=== PATIENT | female | born 1965 | race Caucasian/White ===

== ENCOUNTER 2017-12-21 06:50 | Day surgery (SDC) | payer OTHER, SELFPAY ==
--- NOTE | 2017-12-21 06:52 | PDOC.DSDIS_ITS ---
Discharge Plan Disposition Patient Disposition: HOME Condition: Good Discharge Details Reason For Visit: colonoscopy Attending Provider: Nay Muhammad Primary Care Provider: Yolie Villegas Home Meds and New Rx's Prescriptions: Continue melatonin 10 MG tablet 10 mg PO HS RF: 0 ibuprofen-diphenhydramine HCl [Advil PM Liqui-Gels] 200-25 mg Capsule 2 cap PO HS PRNRF: 0 Discontinued bisacodyl [Bisa-Lax] 5 MG tablet,delayed release (DR/EC) 5 mg PO as directed Qty: 4 RF: 0 polyethylene glycol 3350 255 GM powder 255 gm PO as directed for colo Qty: 255 RF: 0 Discharge Instructions Instructions: Colonoscopy (DC), Colorectal Polyps (DC) Additional Instructions: Findings: 2 polyps Follow up: 3-5 years depending on pathology results New Medications: none Please call if you develop: fevers >101.5 Nausea or Vomiting Abdominal pain that is not transient 1. Because there will be medication in your system for the next 24 hours, you may feel a little sleepy. Your coordination will be affected. Therefore: a. Do not drive or operate dangerous equipment for 24 hours. b. Do not drink alcohol beverages for 24 hours (not even beer). c. Plan to go home and rest for the day. 2. Generally there are no restrictions on your activity after a day or so has gone by, but you may feel a bit fatigued for a few days. 3 After you arrive home you may have a light meal and return to a normal diet as you can tolerate it without feeling sick to your stomach. 4. After surgery, you may feel pain or discomfort. This should be only transient , but if it persists please contact your doctor. 5. If there are any questions regarding the findings of your procedure, please feel free to contact your doctor. 6. If you are unable to contact your doctor with a problem, contact the hospital at [phone]. 7. Continue all your regular medications unless directed otherwise. I understand the above instructions and have no questions. Signature of Patient or Responsible Adult Escort Date/Time Name of Responsible Adult Escort Signature of Nurse Date/Time Activity:: Activity as Tolerated Diet:: Normal Diet Discharge Orders Discharge Orders: Discharge Order (Routine); Ordered 12/21/17 Ordered By: Nay Muhammad
--- NOTE | 2017-12-21 06:52 | W.COLOREPORT ---
Colonoscopy Report Date of procedure: 12/21/17 Pre-op diagnosis general: Colon Cancer screening Post-op diagnosis procedure note: other (2 polyps) Procedure: Colonoscopy with polypectomy by forceps and snare Surgeon: Nay Muhammad Anesthesia proc note operative: MAC (Alonzo Motley, RAN/ Carlos Galloway, JOE) Estimated blood loss (mL): 5 Pathology: other (transverse polyp and descending polyp) Complications: None Disposition: same day Indications: Mrs. Fleming is a pleasant 52 year old who was seen in the office for her first screening colonoscopy. Risks, benefits and complications have been reviewed. Complications include but are not limited to bleeding, pain, perforation, missed small lesion/polyp, sore throat, aspiration and adverse reaction to the medications. Questions were entertained and answered to their satisfaction and they wished to proceed. No guarantees were given or implied. Prep: Miralax/Dulcolax Procedure Start Time: 08:37 Procedure End Time: 09:00 Retraction Time: 14 minutes Findings: One sessile polyp in the transverse colon and one pedunculated polyp in the descending colon Procedure Description: After informed consent was obtained the patient was taken to the procedure room and placed in a left decubitous position. Monitors were applied and a time out was done. The patients name, date of , procedure, allergies to medications and metal in their body was reviewed. The patient was then sedated. Once sedated and comfortable a rectal exam was done. External exam was normal. Internal exam revealed a normal sphincter tone and no palpable masses. . The scope was then introduced and retrofelexed. No internal hemorrhoids were identified. The scope was then advanced to the cecum without difficulty. The TI and appendiceal orifice were identified. The prep was adequate. The scope was then slowly retracted over 14 minutes back into the rectum. 2 polyps were removed. One sessile polyp was removed with forceps in the distal transverse colon and one pedunculated polyp was removed with a snare in the proximal descending colon. The scope was removed and the patient was woken up and taken back to same day surgery in stable condition. The patient tolerated the procedure well and there were no immediate complications. Follow up: The patient should follow up in 3-5 years unless they develop changes in bowel habits or other new gastrointestinal complaints.
[2017-12-21 07:09] VITALS: BP 125/84; PULSE 66; RESP 16; TEMP 36.5; O2SAT 99
[2017-12-21] MEDS: Lactated Ringers 1,000 ML 80 ML IV (07:21)
--- NOTE | 2017-12-21 08:52 | BOWEL_PTH ---
PATIENT: Margie Fleming LOC: [facility] U#:[id number] AGE/SX: 52/F ROOM: RE12/21/[address]: Nay Muhammad MD : [id number] BED: DIS: 12/21/2017 SPEC #: [id number] RECD: 12/21/17 12:58 STATUS: HARLEEN REQ #: [id number] NICOLASA: 12/21/17 08:[address]: Nay Muhammad DEPT: Surgical Specimen RECD BY: Anita Nation ENTERED: 12/21/17 12:59 SP TYPE: Bowel OTHR DR: Yolie Villegas Tissues: 1 - BIOPSY BOWEL 2 - BIOPSY BOWEL Procedures: GROSS AND MICRO LEVEL 4 Comments: [id number]
[2017-12-21 09:32] VITALS: BP 139/82; PULSE 69; RESP 16; TEMP 36.3; O2SAT 99
== END 2017-12-21 09:57 | disposition home or self-care (01) ==
PROVIDERS: PCP Nurse Practitioner Family; Visit Provider Surgery
PROC: 0DJD8ZZ Inspection of Lower Intestinal Tract, Via Natural or Artificial Opening Endoscopic (ICD-10-PCS; CPT 45378; principal; 2017-12-21 08:15)
DX: Z12.11 Encounter for screening for malignant neoplasm of colon (principal); K63.5 Polyp of colon
CPT/HCPCS: 45380; 45385; 88305

== ENCOUNTER 2018-08-03 00:51 | Outpatient (CLI) | payer OTHER, SELFPAY ==
--- NOTE | 2018-08-03 11:28 | DI.MAMMO_ITS ---
SYMPTOM/DIAGNOSIS: SCREENING, [facility], Z00.00 MAMMOGRAMS: Mammograms were interpreted according to the usual protocol including computer analysis with CAD system, tomosynthesis and C view imaging. Comparison is made with prior examinations. Breast density, Category B. No suspicious masses or microcalcifications are seen. There is no definite evidence of malignancy. IMPRESSION: Negative mammogram. Routine screening is recommended. Category 1. MQSA ASSESSMENT OF FINDINGS: Negative. Category 1. Patient will receive a letter notifying them of these results. BI-RADS category B. There are scattered areas of fibroglandular density.
== END 2018-08-03 01:11 ==
PROVIDERS: PCP Nurse Practitioner Family; Visit Provider Nurse Practitioner Family
DX: Z00.00 Encounter for general adult medical examination without abnormal findings (principal); Z12.31 Encounter for screening mammogram for malignant neoplasm of breast
CPT/HCPCS: 77063; 77067

== ENCOUNTER 2018-08-08 09:33 | Outpatient (CLI) | payer OTHER, SELFPAY ==
[2018-08-08 10:36] LABS: Anion Gap 8.3 mmol/L (3-11); BUN 16 mg/dL (7-18); CO2 26.7 mmol/L (21.0-32.0); Calcium 8.9 mg/dL (8.5-10.1); Chloride 105 mmol/L (98-107); Cholesterol 219 mg/dL (50-200); Glucose 93 mg/dL (70-100); HDL Cholesterol 67 mg/dL (40-60); LDL CHOLESTEROL 139 mg/dL (<100); Potassium 4.3 mmol/L (3.5-5.1); Sodium 140 mmol/L (136-145); Triglyceride 38 mg/dL (30-150)
== END 2018-08-08 09:53 ==
PROVIDERS: PCP Nurse Practitioner Family; Visit Provider Nurse Practitioner Family
DX: Z00.00 Encounter for general adult medical examination without abnormal findings (principal); Z13.228 Encounter for screening for other metabolic disorders; Z13.220 Encounter for screening for lipoid disorders
CPT/HCPCS: 36415; 80048; 80061; 83721

== ENCOUNTER 2018-10-10 03:48 | Emergency (ER) | payer OTHER, SELFPAY ==
[2018-10-10 03:52] VITALS: BP 188/98; PULSE 73; RESP 16; TEMP 36.7; O2SAT 97
--- NOTE | 2018-10-10 04:04 | ED.GENADUL_ITS ---
Discharge Plan Disposition Patient Disposition: HOME Condition: Good Discharge Details Chief Complaint: Cellulitis Clinical Impression: Right arm cellulitis Primary Care Provider: Yolie Villegas ED Provider: Td Millard Meds and New Rx's Prescriptions: New cephalexin 500 mg tablet 500 mg PO TID Qty: 20 RF: 0 Continued melatonin 10 MG tablet 10 mg PO HS RF: 0 ibuprofen-diphenhydramine HCl [Advil PM Liqui-Gels] 200-25 mg Capsule 2 cap PO HS PRNRF: 0 Discharge Instructions Instructions: Cellulitis (ED) Additional Instructions: Antibiotic as directed. Use Tylenol or Motrin as needed for discomfort. Follow-up with primary care in 2 to 3 days for recheck. Return to ED for increasing pain, swelling, high fevers, numbness, weakness, other concerns. Referrals: Yolie Villegas [Primary Care Provider] - Medical Decision Making Patient here complaining of pain in the right forearm. She has no discrete tenderness but she has significant warmth with erythema over the ulna aspect of the right forearm. Forearm is soft. There is no crepitus. She has normal range of motion. She has no pain with range of motion. Suspect early cellulitis. Will start Keflex. Motrin for pain. Follow-up with primary care in 2 to 3 days for recheck. Return to ED for worsening pain, swelling, high fevers, numbness, weakness, other concerns or problems. HPI General Mode of arrival: ambulatory . Date/Time Provider Initiated Documentation: 10/10/18 04:03 . Limitations to Documentation: no limitations . Information obtained by: patient . HPI Narrative: Patient presents to ED for evaluation of right arm aching, redness. She was working in her garden most of the day yesterday. She knows she was bitten a few times by insects. Overnight the arm has become painful, red, hot. Seems a little bit swollen to her. She has no pain in the elbow, wrist, hand. Seems mostly to be aching in the forearm. She has been icing it. She did not take anything like Motrin or Tylenol. She has had no fevers or chills. She was having difficulty sleeping so she came in for evaluation. Related Data Home Medications Medication Instructions Recorded Confirmed melatonin 10 mg PO HS 09/15/17 10/10/18 ibuprofen-diphenhydramine HCl 2 cap PO HS PRN 12/17/17 10/10/18 [Advil PM Liqui-Gels] cephalexin 500 mg PO TID #20 tab 10/10/18 Previous Rx's Medication Instructions Recorded cephalexin 500 mg PO TID #20 tab 10/10/18 Allergies Allergy/AdvReac Type Severity Reaction Status Date / Time cashew nut Allergy Severe throat Unverified 12/21/17 07:46 swelling/rash Penicillins Allergy Unknown RASH Unverified 12/21/17 07:07 Sulfa (Sulfonamide Allergy Unknown RASH Unverified 12/21/17 07:07 Antibiotics) sulfamethoxazole Allergy RASH Unverified 12/21/17 07:07 [From Bactrim] trimethoprim [From Bactrim] Allergy RASH Unverified 12/21/17 07:07 General Stated Complaint: Cellulitis DARCIE: 4 Review of Systems Review of Systems As documented in HPI otherwise negative as below. Const: no fever, chills, weakness Resp: no cough, SOB, pleuritic pain CV: no CP, diaphoresis, edema, syncope GI: no abdominal pain, nausea, vomiting, diarrhea Neuro: no headache, numbness, focal weakness, confusion PFSH Medical History Adjustment disorder with depressed mood Miscarriage Obesity Thrombocytopenia Tree nut allergy Family History (Updated 10/10/18 @ 04:13 by Td Millard MD) Other Family history of breast cancer Family history of heart disease Social History Smoking/Tobacco Use Status: Never Alcohol Intake: current Alcohol Intake frequency: holidays/special occasions only Alcohol type: wine Drug use: Never Do you feel safe at home: Yes Do you feel safe in your relationship?: Yes Exam Const General: cooperative, comfortable and no acute distress Orientation: alert and oriented x3 Skin General skin exam: erythema (ulna aspect of right forearm) Trauma: other (couple areas of abrasions/possible insect bite right forearm) Neuro General: alert, oriented x3, no focal motor deficits and CN's II-XI intact bilaterally Cognition: normal cognition Speech: speech normal Sensory Exam: no sensory deficits noted Extrem Right upper extremity: shoulder/upper arm Details: normal to inspection and normal ROM, elbow/forearm Details: normal ROM and warmth (forearm); no tenderness and no swelling and wrist Details: normal to inspection and normal ROM; no tenderness and no unusual warmth Course Vital Signs Temperature 98.1 F 10/10/18 03:52 Pulse 73 10/10/18 03:52 Respiratory Rate 16 10/10/18 03:52 Blood Pressure 188/98 H 10/10/18 03:52 Pulse Oximetry 97 10/10/18 03:52 Temperature 98.1 F 10/10/18 03:52 Temperature Source Temporal Artery Scan 10/10/18 03:52 Pulse 73 10/10/18 03:52 Respiratory Rate 16 10/10/18 03:52 Respiratory Effort 10/10/18 03:52 Blood Pressure 188/98 H 10/10/18 03:52 Pulse Oximetry 97 10/10/18 03:52 Oxygen Delivery Method Room Air 10/10/18 03:52 Oxygen Flow Rate 0 10/10/18 03:52 Pain Level 7 10/10/18 03:52
[2018-10-10] MEDS: Cephalexin 500 MG CAP PO (04:34)
[2018-10-10] MEDS: Ibuprofen 600 MG TAB PO (04:34)
== END 2018-10-10 04:50 | disposition home or self-care (01) ==
PROVIDERS: Emergency Provider Emergency Medicine; PCP Nurse Practitioner Family
DX: L03.113 Cellulitis of right upper limb (principal)
CPT/HCPCS: 99283

== ENCOUNTER 2019-08-30 02:28 | Outpatient (CLI) | payer OTHER, SELFPAY ==
--- NOTE | 2019-08-30 | DI.MAMMO_ITS ---
EXAM: MG MAMMO DIAGNOSTIC BI CLINICAL HISTORY: UNSPECIFIED BREAST DISORDER, N64.9, ITCHING PAIN UNDER LT AREOLA X 4 MOS TECHNIQUE: Mammograms were interpreted according to the usual protocol including computer analysis w [employer] CAD system, tomosynthesis and C-view imaging. COMPARISON: FINDINGS: The breasts are of moderate density with fairly symmetrical distribution of fibroglandular tissue. N o dominant mass or clumped microcalcification is identified in either breast. Current examination is compared with previous examinations including July 2018 and there has been no gross interval change i n appearance in comparison with previous studies. IMPRESSION: No specific evidence of malignancy at this time. Routine screening examinations are suggested at yea rly intervals due to the family history of breast carcinoma. Category: BI-RADS Cat 1 - Negative Breast Density - Category B - Scattered areas of fibroglandular density
--- NOTE | 2021-01-28 | DI.US_ITS ---
Exam(s) MG MAMMO SCREEN CALL BACK UNI US BREAST LT COMPLETE EXAM: DIAGNOSTIC LEFT BREAST ULTRASOUND AND US BREAST LT COMPLETE CLINICAL HISTORY: ASYMMETRIC DENSITIES IN THE LT BREAST. TECHNIQUE: Spot-compression CC and MLO left breast views were performed. Thereafter, Complete ultrasound of the left breast was performed including all 4 quadrants, the retroareolar suma on, and the ipsilateral axilla. COMPARISON: Prior mammograms were reviewed. Most recent mammogram was 01/16/2020. FINDINGS: Additional spot compression views are somewhat equivocal. We proceeded with complete ultrasound exam ination the left breast. At the 12 o'clock position there is a 3 millimeter microcyst, correspond to 1 of the findings on the mammogram. The 3 o'clock position there are 2 adjacent microcysts, both measuring 3 millimeters. Most importantly, there are no solid lesions in all 4 quadrants nor in the immediate retroareolar reg ion. Scanning of the left axilla was negative for significant adenopathy IMPRESSION: Microcysts as described above. These most probably correspond to the findings on the recent screenin g mammogram Appropriate follow-up is repeat left breast mammogram in 6 months, with earlier imaging if a self det ected breast changes noted.. BI-RADS Category 3 - 6 month - Probably Benign Finding: Recommend follow-up mammography in 6 months Breast Density - Category B - Scattered areas of fibroglandular density Breast density Category C or D implies that the patient has dense breast tissue. Dense breast tissue can make it harder to find cancer on a mammogram. Dense breast tissue is also associated with an incr eased risk of breast cancer. This information about the result of the mammogram report was provided to the patient to raise their awareness. Use this report when you speak with the patient about their risks for breast cancer, which includes their family history. At that time, you may recommend additional screening tests (Ultrasoun d or MRI) as these tests may add significant information. A negative radiographic report should not delay biopsy if a dominant or clinically suspicious mass is present. Up to ten percent of cancers are not identified on mammography. A negative report may reinforce clinical impression. Adenosis and dense breasts may obscure an underlying neoplasm. False positive reports average 6 to 10%. Patient will receive a letter notifying them of these results.
== END 2019-08-30 02:48 ==
PROVIDERS: PCP Nurse Practitioner Family; Visit Provider Nurse Practitioner Family
DX: N64.4 Mastodynia (principal); N64.89 Other specified disorders of breast; Z80.3 Family history of malignant neoplasm of breast
CPT/HCPCS: 77062; 77066; G0279

== ENCOUNTER 2019-12-22 15:57 | Outpatient (REF) | payer OTHER, SELFPAY ==
[2019-12-24 17:23] LABS: Patient Race White; SARS-CoV-2 RNA Undetected (Undetected); SARS-CoV-2 Specimen Source Nasopharynx
== END 2019-12-22 16:17 ==
LOC: NCHCN 15:57
PROVIDERS: Visit Provider Nurse Practitioner Family
DX: R53.83 Other fatigue (principal)
CPT/HCPCS: U0003

== ENCOUNTER 2021-01-15 01:26 | Outpatient (CLI) | payer OTHER, SELFPAY ==
--- NOTE | 2021-01-15 07:50 | DI.MAMMO_ITS ---
Exam(s) MAMMO SCREENING EXAM: MAMMO SCREENING CLINICAL HISTORY: SCREENING, [facility],Z00.00 TECHNIQUE: Bilateral full field digital CC and MLO mammographic images were obtained with 3D tomosyn thesis and utilizing computer aided detection (CAD). COMPARISON: Available for comparison. FINDINGS: Masses/Architectural Distortion: There are focal areas of asymmetry in the left breast. There is an area of 5 cm lateral to the nipple on the CC view. There are 2 areas on the MLO view in the central left breast. Microcalcifications: No suspicious pleomorphic-type are seen. Skin Thickening/Nipple Retraction: None. IMPRESSION: 1. Focal asymmetric densities in the left breast as described above. 2. Additional views of the left breast are recommended for further evaluation. Ultrasound may be ind icated at that time. BI-RADS Category 0 - Assessment Incomplete: Need additional imaging evaluation Breast Density - Category B - Scattered areas of fibroglandular density Breast density category C or D implies that the patient has dense breast tissue. Dense breast tissue is very common and is not abnormal but dense breast tissue can make it harder to find cancer on a ma mmogram. Also, dense breast tissue may increase their breast cancer risk. This information about the result of the mammogram report was provided to the patient to raise their awareness. Use this report when you speak with the patient about their risks for breast cancer, which includes their family hist ory. At that time, you may recommend for more screening tests (Ultrasound or MRI) as they might be us eful based on their risk. A negative radiographic report should not delay biopsy if a dominant or clinically suspicious mass is present. Up to ten percent of cancers are not identified on mammography. A negative report may reinforce clinical impression. Adenosis and dense breasts may obscure an underlying neoplasm. False positive reports average 6 to 10%. Patient will receive a letter notifying them of these results.
== END 2021-01-15 01:46 ==
PROVIDERS: PCP Nurse Practitioner Family; Visit Provider Nurse Practitioner Family
DX: Z12.31 Encounter for screening mammogram for malignant neoplasm of breast (principal); R92.8 Other abnormal and inconclusive findings on diagnostic imaging of breast
CPT/HCPCS: 77063; 77067

== ENCOUNTER 2021-01-28 01:17 | Outpatient (CLI) | payer OTHER, SELFPAY | END 2021-01-28 01:37 | PROVIDERS: PCP Nurse Practitioner Family; Visit Provider Nurse Practitioner Family | DX: R92.8 Other abnormal and inconclusive findings on diagnostic imaging of breast (principal); R92.0 Mammographic microcalcification found on diagnostic imaging of breast | CPT/HCPCS: 76642; 77063; 77067 ==

== ENCOUNTER 2021-02-28 01:42 | Outpatient (CLI) | payer OTHER, SELFPAY ==
--- NOTE | 2021-02-28 07:45 | DI.RAD_ITS ---
Exam(s) XR HIP RT COMPLETE AP PELVIS EXAM: XR HIP RT COMPLETE AP PELVIS CLINICAL HISTORY: RT HIP JOINT PAIN M25.551 LOWER BACK PAIN M54.5. TECHNIQUE: 2D digital imaging was performed. COMPARISON: CR RT HIP COMPLETE AP PELVIS from 05/24/2014 FINDINGS: There is no evidence of pelvic nor hip fracture. Sacroiliac joints appear unremarkable. Previously present IUD in the pelvis no longer present. Appearance of the hips exhibits minimal if any change when compared. No new joint space narrowing. No osteophytes. No abnormal soft tissue calcifications. IMPRESSION: Pelvis and hips appear radiographically unchanged from images of 05/24/2014. DATA REPOSITORY: RADIATION DOSE DELIVERED:
== END 2021-02-28 02:02 ==
PROVIDERS: PCP Nurse Practitioner Family; Visit Provider Nurse Practitioner Family
DX: M25.551 Pain in right hip (principal); M54.59 Other low back pain
CPT/HCPCS: 73502

== ENCOUNTER 2021-07-30 00:49 | Outpatient (CLI) | payer OTHER, SELFPAY ==
--- NOTE | 2021-07-30 11:00 | DI.MAMMO_ITS ---
Exam(s) MG MAMMO DIAGNOSTIC UNI EXAM: MG MAMMO DIAGNOSTIC UNI -LEFT CLINICAL HISTORY: H/O [facility] MAMMO, Z87.898; 6-MO F/U ABNL MAMMO. TECHNIQUE: Unilateral LEFT CC AND MLO images were obtained with 3D tomosynthesis technique and [employer] computer aided detection (CAD). COMPARISON: Prior mammograms were reviewed, the most recent being December and January 2021.. Ultrasound of January 2021 was also reviewed. FINDINGS: The small nodular densities in the left breast remain unchanged. Shown to be microcysts on prior ult rasound exam. No new spiculated masses nor malignant-appearing microcalcification groups evident in the left breast . No new architectural distortion or skin thickening-traction. IMPRESSION: Stable benign-appearing mammographic findings in the left breast. Appropriate follow-up is to keep this patient yearly mammogram schedule, this implying the next [facility] mammogram would be in December 2021, with earlier imaging if a self detected breast changes noted . The patient was informed of the findings and follow-up recommendations prior to leaving the [facility] today. BI-RADS Category 2 - Benign Findings Breast Density - Category B - Scattered areas of fibroglandular density Breast density Category C or D implies that the patient has dense breast tissue. Dense breast tissue can make it harder to find cancer on a mammogram. Dense breast tissue is also associated with an incr eased risk of breast cancer. This information about the result of the mammogram report was provided to the patient to raise their awareness. Use this report when you speak with the patient about their risks for breast cancer, which includes their family history. At that time, you may recommend additional screening tests (Ultrasoun d or MRI) as these tests may add significant information. A negative radiographic report should not delay biopsy if a dominant or clinically suspicious mass is present. Up to ten percent of cancers are not identified on mammography. A negative report may reinforce clinical impression. Adenosis and dense breasts may obscure an underlying neoplasm. False positive reports average 6 to 10%. Patient will receive a letter notifying them of these results.
== END 2021-07-30 01:09 ==
PROVIDERS: PCP Nurse Practitioner Family; Visit Provider Nurse Practitioner Family
DX: R92.8 Other abnormal and inconclusive findings on diagnostic imaging of breast (principal); N60.12 Diffuse cystic mastopathy of left breast
CPT/HCPCS: 77061; 77065; G0279

== ENCOUNTER 2021-12-17 13:31 | Outpatient (REF) | payer OTHER, SELFPAY ==
[2021-12-17 15:13] LABS: Anion Gap 10.8 mmol/L (3-11); BUN 24 mg/dL (7-18); CO2 23.2 mmol/L (21.0-32.0); CREATININE 0.9 mg/dL (0.55-1.02); Calcium 9.7 mg/dL (8.5-10.1); Chloride 102 mmol/L (98-107); Estimated GFR 75.97 (mL/min/1.73m2); Glucose 93 mg/dL (74-106); Potassium 3.6 mmol/L (3.5-5.1); Sodium 136 mmol/L (136-145)
== END 2021-12-17 13:32 | disposition home or self-care (01) ==
LOC: NCHCN 13:31
PROVIDERS: PCP Nurse Practitioner Family; Visit Provider Nurse Practitioner Family
DX: Z00.00 Encounter for general adult medical examination without abnormal findings (principal); I10 Essential (primary) hypertension; F32.9 Major depressive disorder, single episode, unspecified
CPT/HCPCS: 80048

== ENCOUNTER → 2022-01-16 02:56 | Outpatient (CLI) | payer OTHER, SELFPAY ==
--- NOTE | 2022-01-16 07:30 | DI.MAMMO_ITS ---
Exam(s) MAMMO SCREENING EXAM: MAMMO SCREENING CLINICAL HISTORY: SCREENING, Z12.39 TECHNIQUE: Mammograms were interpreted according to the usual protocol including computer analysis w [employer] CAD system, tomosynthesis and C-view imaging. COMPARISON: FINDINGS: The breasts are of moderate density with fairly symmetrical distribution of fibroglandular tissue. N o dominant mass or clumped microcalcification is identified in either breast. The current examinatio n is compared with previous examinations including December 2020 and there has been no gross interval change in appearance in comparison with the prior studies. IMPRESSION: No specific evidence of malignancy at this time. Routine screening examinations are suggested at yea rly intervals due to the family history of breast carcinoma. BI-RADS Category 1 - Negative Breast Density - Category B - Scattered areas of fibroglandular density
== END ==
PROVIDERS: PCP Nurse Practitioner Family; Visit Provider Nurse Practitioner Family
DX: Z12.31 Encounter for screening mammogram for malignant neoplasm of breast (principal)
CPT/HCPCS: 77063; 77067

== ENCOUNTER → 2022-03-18 01:04 | Outpatient (CLI) | payer OTHER, SELFPAY ==
--- NOTE | 2022-03-18 06:15 | DI.MRI_ITS ---
Exam(s) MR LOWER JOINT RT WO EXAM: MR LOWER JOINT RT WO CLINICAL HISTORY: PAIN,rt hip trochanteric bursitis, m70.61 TECHNIQUE: Multiplanar multisequence MRI of the hip was performed. COMPARISON: No exams were available for comparison FINDINGS: MARROW:There is no evidence of fracture, bone contusion, nor avascular necrosis. There are no signif icant osseous lesions.There is no significant osseous excrescence at the femoral head-neck junction t o suggest the presence of cam-type MARLENY. EFFUSION: There is no evidence of hip joint effusion. BURSAE: There is no evidence of trochanteric bursitis. There is no evidence of iliopsoas bursitis. HIP JOINT SPACE: No obvious chondral defects.There is no hypertrophy of the ligamentum teres nor sign al abnormality at the fovea centralis. LABRUM: There is no evidence of obvious labral tear nor evidence of paralabral cyst. TENDONS: Iliopsoas tendon group appears unremarkable. No iliopsoas bursitis evident. Gluteal group: There is partial tearing of the gluteus medius fibers from the greater trochanter. Th ere is also low-grade partial tearing of the right gluteus minimus tendon. There is no abnormal intr aosseous signal in the greater trochanter itself. ISCHIAL TUBEROSITY/HAMSTRING: There is mild increased T2 signal in the proximal hamstring tendon at t he ischial tuberosity level consistent with low-grade partial tearing or tendinopathy. OTHER: There is no abnormal intramuscular signal within the quadratus femoris to suggest the presence of impingement syndrome at this level. Incidentally noted is a 1.5 x 1.6 cm fibroid at the level the uterine fundus, slightly left of center . Also sigmoid diverticulosis. IMPRESSION: 1. There is significant partial tearing of gluteus medius attachment site at the level the greater tr ochanter and partial tearing of the gluteus minimus at this level. 2. No evidence of fracture, AVN, nor hip joint effusion. No obvious degenerative changes. 3. No evidence of labral tear nor paralabral cyst. Incidentally noted is a small 1.6 cm diameter uterine fibroid at the level the fundus. Also sigmoid diverticulosis evident. DATA REPOSITORY:
--- NOTE | 2022-03-18 17:06 | DI.VRAD_ITS ---
PROCEDURE INFORMATION: Exam: MR Right Lower Extremity Joint Without Contrast; Hip Exam date and time: 03/18/2022 7:57 AM Age: 57 years old Clinical indication: Other: Pain, RT hip trochanteric bursitis TECHNIQUE: Imaging protocol: Magnetic resonance imaging of the Right lower extremity joint without contrast. Exam focused on the hip. COMPARISON: CR XR HIP RT COMPLETE AP PELVIS 02/28/2021 8:09 AM FINDINGS: Bones and cartilage: Unremarkable. No acute abnormality. Joint spaces: No joint effusion. Labrum: Unremarkable. No tear. TENDONS: Tendons of iliopsoas group: Unremarkable. No evidence of tear. Tendons of medial compartment of thigh: Unremarkable. No evidence of tear. Tendons of lateral rotators of hip: Unremarkable. No evidence of tear. Tendons of gluteal group: Partial tearing of the deep fibers of the gluteus minimus tendon from the right greater trochanter. Approximately 1.6 cm of retraction of the torn fibers of the tendon. Tendinopathy and low-grade partial tearing of the right gluteus minimus tendon. Tendons of posterior compartment of thigh: Slight increased T2 signal in the proximal bilateral hamstring tendons consistent with low-grade partial tearing and tendinopathy. Muscles: See Tendons of gluteal group finding. Soft tissues: Unremarkable. Reproductive: 1.7 cm uterine fibroid. IMPRESSION: 1. Tendinopathy right gluteus medius and minimus tendons with partial tearing of the gluteus medius tendon 2. Bilateral hamstring tendinopathy or low-grade partial tearing 3. Uterine fibroid Dictated and Authenticated by: Betty Deluca MD. Ordering:LEANN Blanco MD
== END ==
PROVIDERS: PCP Nurse Practitioner Family; Visit Provider Student in an Organized Health Care Education/Training Program
DX: M70.61 Trochanteric bursitis, right hip (principal); D25.9 Leiomyoma of uterus, unspecified; S76.311A Strain of muscle, fascia and tendon of the posterior muscle group at thigh level, right thigh, initial encounter
CPT/HCPCS: 73721

== ENCOUNTER 2022-04-25 09:22 | Day surgery (SDC) | payer OTHER, SELFPAY ==
[2022-04-25] VITALS (9 sets, daily range): BP systolic 96–149; BP diastolic 59–85; PULSE 59–79; RESP 11–19; TEMP 36.2–36.6; O2SAT 89–96; BMI 41.1
[2022-04-25] MEDS: Lactated Ringers 1,000 ML 30 ML IV (10:19)
--- NOTE | 2022-04-25 10:32 | W.ANESPRE ---
General Info Date of Service Date Performed: 04/25/22 Height: 5 ft 7 in Weight: 119.1 kg Body Mass Index (BMI): 41.1 Surgical Procedure: Operation Date: 04/25/22 11:20 Proposed Procedure Side Surgeon p Endoscopic Iliotibial Band Release w/Trochanteric Bursectomy & Gluteal Tendon Repair Right Kishan Shea MD Pre-Op Diagnosis Post-Op Diagnosis (1) Trochanteric bursitis, right hip (2) Iliotibial band syndrome of right side (3) Tear of right gluteus medius tendon Meds Allergies and Home Medications Allergies Allergy/AdvReac Type Severity Reaction Status Date / Time cashew nut Allergy Severe throat Unverified 04/24/22 14:44 swelling/rash Penicillins Allergy Unknown RASH Unverified 04/24/22 14:44 Sulfa (Sulfonamide Allergy Unknown RASH Unverified 04/24/22 14:44 Antibiotics) sulfamethoxazole Allergy RASH Unverified 04/24/22 14:44 [From Bactrim] trimethoprim [From Bactrim] Allergy RASH Unverified 04/24/22 14:44 Home Medication Medication Instructions Recorded hydrochlorothiazide 25 mg tablet 25 mg PO DAILY 09/17/21 melatonin 10 mg-lemon balm leaf 1 tab PO DAILY 09/17/21 extract 1 mg tablet Current Visit Medications: Current Medications Generic Name Dose Route Start Last Admin Trade Name Freq PRN Reason Stop Dose Admin Cefazolin Sodium 3,000 mg/ 100 mls @ 200 mls/hr 04/25/22 06:00 Sodium Chloride IVPB 04/25/22 18:00 PREOP MARIANNA Ringer's Solution 1,000 mls @ 30 mls/hr 04/25/22 06:00 04/25/22 10:19 IV 05/24/22 23:59 30 mls/hr INFUSION MARIANNA Administration IV Miscellaneous Supplies 1 each 04/25/22 06:00 Iv Access IV 05/24/22 23:59 DIRECTED MARIANNA Oxycodone HCl 0 mg 04/25/22 07:18 Oxycodone 5 Mg Tab PO Q3H PRN PRN Pain Sodium Chloride 0 ml 04/25/22 06:00 Normal Saline Flush 10 Ml Syr IV 05/24/22 23:59 PRN PRN Sodium Chloride 0 ml 04/25/22 06:00 Normal Saline 10 Ml Vial IJ 05/24/22 23:59 DIRECTED PRN Sterile Water 0 ml 04/25/22 06:00 Water,Injection,Sterile 10 Ml Vial IJ 05/24/22 23:59 DIRECTED PRN PFSH Active Problems Active Problems: Problem Status Onset Code Tear of right gluteus medius tendon S76.011A Trochanteric bursitis, right hip M70.61 Hypertension I10 Low back pain M54.50 Medical History Medical History Adjustment disorder with depressed mood Depression History of abnormal mammogram Iliotibial band syndrome of right side Miscarriage Obesity Seborrheic keratoses Thrombocytopenia 1999 Tree nut allergy Tobacco Smoking/Tobacco Use Status: Never Alcohol Alcohol Intake: current Alcohol intake frequency: holidays/special occasions only Alcohol type: wine Substance Use Substance use: Never Substance use type: does not use Vital Signs and Lab Results Vital Signs Most Recent Vital Signs in EMR: Most Recent Vital Signs Temp Pulse Resp BP Pulse Ox 36.6 C 79 16 149/85 H 96 04/25/22 09:42 04/25/22 09:42 04/25/22 09:42 04/25/22 09:42 04/25/22 09:42 Lab Results Blood Type / Crossmatch: No Data to Display Complete Blood Count: No Data to Display Complete Metabolic Panel: No Data to Display Liver Function Panel: No Data to Display Coagulation Panel: No Data to Display Cardiac Panel: No Data to Display Arterial Blood Gas: No Data to Display Venous Blood Gas: No Data to Display Pancreas Panel: No Data to Display Thyroid Panel: No Data to Display Infectious Disease: No Data to Display Blood Cultures: No Data to Display Toxicology Panel: No Data to Display Anesthesia Assessment and Plan Anesthesia History Personal History: No History of Anesthesia Complications Family History: No Family History of Anesthesia Complications Exercise Tolerance Exercise Tolerance: Metabolic Equivalents>4 Pertinent Negatives Pertinent Negatives: No Symptoms of GERD, No Major Cardiovascular Symptoms or Complaints, No Major Pulmonary Symptoms or Complaints and No History of CVA/TIA Cardiac & Pulmonary Exam Cardiac Exam: Normal S1/S2 Heart Sounds Pulmonary Exam: Clear Bilateral Breath Sounds Implantable Cardiac Device Does patient have a Pacemaker or an ICD?: No Airway Exam Known Difficult Airway: No Mallampati Class: 3 Mouth Opening: Normal (> 3cm) Thyromental Distance: Greater than 3 cm Neck Range of Motion: Full ROM Neck Circumference: Thick Teeth Condition: Normal Dentition ASA Classification ASA Score: ASA 3 Emergency Case?: No NPO Status NPO Status: NPO Clears >2 hours, Solids >8 hours Anesthesia Plan Resuscitation Status: Full Code Anesthesia Technique: General Anesthesia Airway Planned: Endotracheal Tube Monitors Used: Standard Monitors
[2022-04-25] MEDS: ceFAZolin 3,000 MG in Normal Saline 100 ML 200 MG IVPB (12:17)
[2022-04-25] MEDS: Bupivacaine 0.5% Pres-Free W/EPI 30 ML VIAL (12:29)
[2022-04-25] MEDS: EPINEPHrine 30 MG/30 ML VIAL (12:38)
--- NOTE | 2022-04-25 13:01 | DI.RAD_ITS ---
Exam(s) XR HIP RT IN OR EXAM: XR HIP RT IN OR CLINICAL HISTORY: (1) Trochanteric bursitis, right hip: TECHNIQUE: 2D and realtime digital imaging was performed. CONTRAST MATERIAL: Refer to procedure report. COMPARISON: No exams were available for comparison FINDINGS: Fluoroscopy was provided for Dr. Shea during the performance of a right hip surgery. Please refer t o the procedure report for complete details. Ka,r=2.2 mGy IMPRESSION: RADIATION DOSE DELIVERED:
[2022-04-25] MEDS: HYDROmorphone 2 MG/ML SYR IVP ×2 (13:33→13:57)
[2022-04-25] MEDS: Normal Saline 10 ML VIAL IJ (13:34)
--- NOTE | 2022-04-25 13:37 | W.PM.DSUDISC ---
Date of service: 04/25/22 Time of Service: 14:00 Discharge Plan Disposition Patient Disposition: Home Discharge Details Attending Provider: Kishan Shea Primary Care Provider: Yolie Villegas Home Meds and New Rx's Prescriptions: Continued hydrochlorothiazide 25 mg tablet 25 mg PO DAILY melatonin-lemon balm leaf extr 10-1 mg tablet 1 tab PO DAILY Discontinued Advil PM Liqui-Gels 200-25 mg Capsule 2 cap PO HS PRN Discharge Instructions Additional Instructions: Surgery: Right hip endoscopy with iliotibial band release and trochanteric bursectomy Activity: Weightbearing as tolerated. May use crutches or walker as needed for a few days. Gradually advance to full range of motion and activity over the next few weeks. A physical therapy prescription will be provided separately in the office at follow up if needed. Prescriptions: Aspirin 81 mg take 1 daily to prevent a blood clot for 2 weeks Naproxen 250 mg take 1-2 every 12 hours with a meal as needed for moderate pain Oxycodone 5 mg take 1-2 every 4-6 hours as needed for severe pain You may use [id number] Tylenol (acetaminophen) as needed for mild pain. These pain medications may be taken all at once or in different combinations as needed. Also, recommend Colace (docusate) as a stool softener as surgery and pain medicine cause constipation. You may try [id number] diphenhydramine (Benadryl) 25-50 mg nightly as a sleep aid Dressings: Leave dressing in place for 3 days. May then remove and leave open to air or cover incisions with Band-Aids. Leave the sticky Steri-Strips in place until they fall off or remove them after you shower. May shower after 5 days. Follow-up: 10-[address] Shea You may take off the leg compression stockings this evening at home. You may also leave them on a few days longer if you have a history of leg swelling or edema. Let us know right away if you develop any redness, drainage, fevers, chest pain, or trouble breathing. Do not drink alcohol or drive for at least 24 hours after anesthesia. Please call the office during business hours with any questions or concerns. Discharge Orders Discharge Orders: Discharge Order (Routine); Ordered 04/25/22 Ordered By: Kishan M Korsh DS: Diagnosis Discharge Diagnosis (1) Tear of right gluteus medius tendon: Status: Acute (2) Trochanteric bursitis, right hip: Status: Acute
--- NOTE | 2022-04-25 13:39 | ROE_ITS ---
Date of service: 04/25/22 Time of Service: 11:00 Operative Note Operative Note DATE OF PROCEDURE: 04/25/22 PRE-OP DIAGNOSIS: Right hip 1. Iliotibial band syndrome 2. Trochanteric bursitis POST-OP DIAGNOSIS: same PROCEDURE: Right hip endoscopic 1. Iiliotibial band release, CPT# 86403 2. Trochanteric bursectomy, CPT# 64950 SURGEON: Kishan Shea COMMUNITY RELATIONS OFFICER: Elder Samaniego ANESTHESIA TYPE: Local By Surgeon and General LMA/ETT Refer to Anesthesia Record ESTIMATED BLOOD LOSS: 5 COMPLICATIONS: None Patient was transported to: PACU Patient's condition: stable Indications: Please see complete medical record for details. Findings: Thickened iliotibial band. Abundant, inflamed trochanteric bursitis. No significant gluteal tendon tearing. Procedure Description: In the operating room, general anesthesia was induced. The patient was positioned supine on the [facility] operating room table. All bony prominences were well-padded. Preoperative antibiotics were administered. The hip was prepped and draped in the usual sterile fashion. The correct patient, procedure, and side of the procedure were all verified prior to incision. 30 cc of 0.5% bupivacaine containing epinephrine was infiltrated about the subcutaneous tissues for the planned anterior lateral and distal anterolateral portals as well as deeply over the greater trochanter. A knife was used to incise the skin for the anterior lateral and distal anterolateral portals followed by blunt dissection subcutaneously. Under fluoroscopic guidance, a switching stick and arthroscope were inserted localizing the iliotibial band over the greater trochanter. Blunt dissection and the mechanical shaver were used to resect fat and overlying tissue about the center of the iliotibial band and carefully expose the anterior and posterior margins. Once there was adequate exposure of the IT band, the greater trochanter was again localized under fluoroscopic guidance with a spinal needle inserted through the skin down to bone. This central area was marked using the radiofrequency ablator. A [place] blade was brought in and used to create a 2 cm longitudinal incision in line with the IT band fibers as well as extending it in a cruciate fashion with 2 cm incisions anteriorly and posteriorly. The radiofrequency ablator was used to achieve hemostasis. The mechanical shaver was then used to debride the IT band released edges exposing the trochanteric bursa. The mechanical shaver was then used to excise the trochanteric bursa taking care to protect musculature about the margins of the greater trochanter as well as neurovascular structures especially posteriorly. There was excellent visualization of the vastus lateralis as well as gluteus medius confirming appropriate bursa excision. The hip was brought through range of motion including internal and external rotation and there was no impinging iliotibial band tissue or remaining pathologic bursa. The viewing and working portals were switched and appropriate IT band release, trochanteric bursa excision, and hemostasis confirmed. Abundant inflamed bursal tissue had been removed. Vastus lateralis was intact. Gluteus minimus and medius muscles appeared normal and tendons intact or greater trochanter. This was tested through range of motion. There is mild thinning posterior superiorly of the medius tendon, but no hypermobility, on probing did not appreciate any significant structural tearing. Decision made to omit any takedown and repair. Suction was used to remove fluid from the endoscopic space. The portals were closed using 3-0 Monocryl in a buried fashion. Steri-Strips were applied over the incisions followed by Xeroform, 4 x 4 gauze, an ABD pad, and secured with tape. The patient awoke from anesthesia without complication and was transferred to the recovery room in a stable condition.
--- NOTE | 2022-04-25 15:48 | W.ANESPOSTOP ---
Postoperative Evaluation Date, Time and Location Date Performed: 04/25/22 Time Performed: 15:48 Patient Location: Day Surgery Unit Vital Signs Most Recent Imported Vital Signs: Most Recent Vital Signs Temp Pulse Resp BP Pulse Ox 36.4 C L 63 16 124/79 94 04/25/22 14:55 04/25/22 14:55 04/25/22 14:55 04/25/22 14:55 04/25/22 14:55 Pain Score Most Recent Pain Score: Most Recent Pain Score Pain Level 2 04/25/22 14:55 Assessment Mental Status: Awake (Alert & Oriented to Patient Baseline) Airway and Respiratory Function: Patent airway with normal (patient baseline) respiratory exam Cardiovascular Function: Hemodynamically Stable Hydration Status: Adequately Hydrated Nausea & Vomiting: No Nausea or Vomiting Pain: Pain is tolerable per patient Peripheral Nerve Block: Patient did not receive a nerve block
== END 2022-04-25 15:50 | disposition home or self-care (01) ==
PROVIDERS: PCP Nurse Practitioner Family; Visit Provider Student in an Organized Health Care Education/Training Program
PROC: (CPT 29863; principal; 2022-04-25 11:00)
DX: S76.011A Strain of muscle, fascia and tendon of right hip, initial encounter (principal); M70.61 Trochanteric bursitis, right hip; I10 Essential (primary) hypertension; M54.50 Low back pain, unspecified; X58.XXXA Exposure to other specified factors, initial encounter
CPT/HCPCS: 27062; 27305; 73501; J0690; J1100; J1170; J1885; J2405; J2704

== ENCOUNTER → 2023-01-20 01:17 | Outpatient (CLI) | payer OTHER, SELFPAY ==
--- NOTE | 2023-01-20 11:16 | DI.MAMMO_ITS ---
Exam(s) MAMMO SCREENING EXAM: MAMMO SCREENING CLINICAL HISTORY: SCREENING FOR BREAST CANCER Z12.39 TECHNIQUE: Mammograms were interpreted according to the usual protocol including computer analysis w [employer] CAD system, tomosynthesis and C-view imaging. COMPARISON: 2016 through 2021 FINDINGS: The breasts are composed of scattered fibroglandular densities, Breast Density category B. No suspicious masses or suspicious microcalcifications are seen. No skin thickening or abnormal axillary lymph nodes are seen. There has been no significant change from prior exams. IMPRESSION: BI-RADS Category 1, Negative mammogram Yearly screening mammography is recommended. Breast Density - Category B, scattered fibroglandular densities. A negative radiographic report should not delay biopsy if a dominant or clinically suspicious mass is present. Up to ten percent of cancers are not identified on mammography. A negative report may reinforce clinical impression. Adenosis and dense breasts may obscure an underlying neoplasm. False positive reports average 6 to 10%. Patient will receive a letter notifying them of these results.
== END ==
PROVIDERS: PCP Nurse Practitioner Family; Visit Provider Nurse Practitioner Family
DX: Z12.31 Encounter for screening mammogram for malignant neoplasm of breast (principal)
CPT/HCPCS: 77063; 77067

== ENCOUNTER 2023-02-03 15:25 | Outpatient (REF) | payer OTHER, SELFPAY ==
--- NOTE | 2023-02-03 14:30 | PAPFT_PTH ---
PATIENT: Margie Fleming LOC: [facility] U#:[id number] AGE/SX: 58/F ROOM: RE02/03/[address]: WILLOW GUPTA : 1965 BED: DIS: 02/03/2023 SPEC #: [id number] RECD: 02/03/23 18:35 STATUS: HARLEEN REQ #: [id number] NICOLASA: 02/03/23 14:[address]: Willow Gupta DEPT: [facility] Cytology RECD BY: Anita Nation Tissues: 1 - CX/ENDOCX FOR PAP SMEARS Procedures: PAP THIN PREP/UVM Screening HPV DNA PROBE Comments: [id number]
== END 2023-02-03 15:26 | disposition home or self-care (01) ==
LOC: NCHCN 15:25
PROVIDERS: PCP Nurse Practitioner Family; Visit Provider Nurse Practitioner Family
DX: Z12.4 Encounter for screening for malignant neoplasm of cervix; Z11.51 Encounter for screening for human papillomavirus (HPV)
CPT/HCPCS: 88142; 87624

== ENCOUNTER 2023-02-06 04:02 | Outpatient (CLI) | payer OTHER, SELFPAY ==
[2023-02-06 15:50] LABS: ALT 27 U/L (14-59); AST 17 U/L (15-37); Albumin 3.6 g/dL (3.4-5.0); Alkaline Phosphatase 96 U/L (46-116); Anion Gap 8.6 mmol/L (3-11); BUN 21 mg/dL (7-18); Bilirubin, Total 0.3 mg/dL (0.2-1.0); CO2 29.4 mmol/L (21.0-32.0); CREATININE 1.5 mg/dL (0.55-1.02); Calcium 8.9 mg/dL (8.5-10.1); Calculated LDL 139 mg/dL (<100); Chloride 100 mmol/L (98-107); Cholesterol 209 mg/dL (<200); Estimated GFR 40.65 (mL/min/1.73m2); Glucose 91 mg/dL (74-106); HDL Cholesterol 53 mg/dL (40-60); Sodium 138 mmol/L (136-145); Total Protein 7.3 g/dL (6.4-8.2); Triglyceride 88 mg/dL (<150)
[2023-02-06 15:57] LABS: Potassium 2.8 mmol/L (3.5-5.1)
== END 2023-02-06 04:03 | disposition home or self-care (01) ==
LOC: LBO 04:02
PROVIDERS: PCP Nurse Practitioner Family; Visit Provider Nurse Practitioner Family
DX: I10 Essential (primary) hypertension (principal); Z13.220 Encounter for screening for lipoid disorders
CPT/HCPCS: 36415; 80053; 80061

== ENCOUNTER 2023-02-17 03:15 | Outpatient (CLI) | payer OTHER, SELFPAY ==
[2023-02-17 13:41] LABS: Anion Gap 10.2 mmol/L (3-11); BUN 19 mg/dL (7-18); CO2 21.8 mmol/L (21.0-32.0); Calcium 9.4 mg/dL (8.5-10.1); Chloride 105 mmol/L (98-107); Estimated GFR 66.12 (mL/min/1.73m2); Glucose 117 mg/dL (74-106); Magnesium 2.3 mg/dL (1.8-2.4); Potassium 3.9 mmol/L (3.5-5.1); Sodium 137 mmol/L (136-145)
== END 2023-02-17 03:16 | disposition home or self-care (01) ==
LOC: LBO 03:16
PROVIDERS: PCP Nurse Practitioner Family; Visit Provider Nurse Practitioner Family
DX: I10 Essential (primary) hypertension (principal); E87.6 Hypokalemia
CPT/HCPCS: 36415; 80048; 83735

== ENCOUNTER 2023-08-27 16:35 | Outpatient (REF) | payer OTHER, SELFPAY ==
[2023-08-27 21:30] LABS: Hemoglobin A1C 5.9 % (<5.7)
[2023-08-27 21:31] LABS: ALT 29 U/L (14-59); AST 16 U/L (15-37); Albumin 3.8 g/dL (3.4-5.0); Alkaline Phosphatase 103 U/L (46-116); Anion Gap 9.8 mmol/L (3-11); BUN 22 mg/dL (7-18); Bilirubin, Total 0.3 mg/dL (0.2-1.0); CO2 25.2 mmol/L (21.0-32.0); CREATININE 0.9 mg/dL (0.55-1.02); Calcium 9.3 mg/dL (8.5-10.1); Calculated LDL 154 mg/dL (<100); Chloride 106 mmol/L (98-107); Cholesterol 239 mg/dL (<200); Estimated GFR 75.03 (mL/min/1.73m2); Glucose 88 mg/dL (74-106); HDL Cholesterol 74 mg/dL (40-60); Potassium 4.4 mmol/L (3.5-5.1); Sodium 141 mmol/L (136-145); TSH 2.54 uIU/Ml (0.36-3.74); Total Protein 7.2 g/dL (6.4-8.2); Triglyceride 59 mg/dL (<150)
[2023-08-27 21:51] LABS: FREE T4 0.94 ng/dL (0.76-1.46)
== END 2023-08-27 16:36 | disposition home or self-care (01) ==
LOC: NCHCN 16:35
PROVIDERS: Visit Provider Nurse Practitioner Family
DX: Z13.220 Encounter for screening for lipoid disorders (principal); I10 Essential (primary) hypertension; Z68.41 Body mass index [BMI] 40.0-44.9, adult
CPT/HCPCS: 80053; 80061; 83036; 84439; 84443

== ENCOUNTER 2023-10-01 16:27 | Emergency (ER) | payer OTHER, SELFPAY ==
[2023-10-01 16:29] VITALS: BP 147/67; PULSE 83; RESP 17; O2SAT 98
[2023-10-01] MEDS: Famotidine 20 MG TAB PO (17:06)
[2023-10-01] MEDS: Loratidine 10 MG TAB PO (17:07)
[2023-10-01] MEDS: Dexamethasone 4 MG TAB 8 MG PO (17:07)
--- NOTE | 2023-10-01 19:05 | ED.GENADUL_ITS ---
Discharge Plan Disposition Patient Disposition: Home Discharge Details Clinical Impression: Allergic reaction to bee sting Primary Care Provider: Unknown,Unknown ED Provider: Renzo Roche Home Meds and New Rx's Prescriptions: New methylprednisolone [Medrol (Enrique)] 4 mg tablets,dose pack See Rx Instructions .ROUTE .COMPLEX Qty: 21 0RF Rx Instructions: orally per package directions No Action trazodone 50 mg tablet 50 mg PO DAILY sertraline [Zoloft] 25 mg tablet 25 mg PO DAILY hydrochlorothiazide 25 mg tablet 25 mg PO DAILY Discharge Instructions Instructions: Insect Bites and Stings ED Additional Instructions: * Start Medrol Dosepak tomorrow. This prescription has been sent to the pharmacy * Take Claritin 10 mg once daily and Pepcid 20 mg twice daily. Both of these medications are available [id number] * Keep foot elevated and apply ice to the area * Applied topical Benadryl or hydrocortisone cream to help with the local reaction * Return with worsening pain, not improving with medications, fever Discharge Data Discharge Date/Time-TO BE ENTERED AT DEPARTURE: 10/01/23 17:18 HPI General Date/Time Provider Initiated Documentation: 10/01/23 16:53 . Limitations to Documentation: no limitations . Information obtained by: patient . HPI Narrative: 58-year-old female with past medical history of hypertension presents for evaluation of pain associated with a bee sting. She reports that she was stung by a bee on her left ankle. She states this occurred 2 days ago. She states that it is still red itchy and painful. Pain worse with walking. She has taken a couple Benadryl at nighttime, but otherwise is not using any additional medications. She denies that the rash is enlarging. Denies any shortness of breath, denies any nausea or vomiting. Related Data Home Medications Medication Instructions Recorded Confirmed hydrochlorothiazide 25 mg tablet 25 mg PO DAILY 09/17/21 10/01/23 sertraline 25 mg tablet (Zoloft) 25 mg PO DAILY 09/24/22 10/01/23 trazodone 50 mg tablet 50 mg PO DAILY 09/24/22 10/01/23 methylprednisolone 4 mg tablets in See Rx Instructions PO .COMPLEX 10/01/23 a dose pack (Medrol (Enrique)) #21 dose pk Previous Rx's Medication Instructions Recorded methylprednisolone 4 mg tablets in See Rx Instructions PO .COMPLEX 10/01/23 a dose pack (Medrol (Enrique)) #21 dose pk Allergies Allergy/AdvReac Type Severity Reaction Status Date / Time cashew nut Allergy Severe throat Unverified 10/01/23 16:32 swelling/rash Penicillins Allergy Unknown RASH Unverified 10/01/23 16:32 Sulfa (Sulfonamide Allergy Unknown RASH Unverified 10/01/23 16:32 Antibiotics) sulfamethoxazole Allergy RASH Unverified 10/01/23 16:32 [From Bactrim] trimethoprim [From Bactrim] Allergy RASH Unverified 10/01/23 16:32 General Stated Complaint: InsectBite DARCIE: 4 Exam Narrative Exam Narrative: Review of Systems: All systems reviewed & are unremarkable except as noted in HPI and below Well-developed, no acute distress NCAT PERRL, normal conjunctiva RRR Unlabored respiratory effort Nondistended abdomen Extremities w/o deformity, no cyanosis, no edema Left medial ankle area with site of bite noted, some associated erythema and swelling, the joint has full range of motion, there is no lymphangitic spread or streaking no focal neurologic deficits Appropriate mood and affect Course Vital Signs Vital signs: Vital Signs Pulse 83 10/01/23 16:29 Respiratory Rate 17 10/01/23 16:29 Blood Pressure 147/67 H 10/01/23 16:29 Pulse Oximetry 98 10/01/23 16:29 Temperature Source Temporal Artery Scan 10/01/23 16:29 Pulse 83 10/01/23 16:29 Respiratory Rate 17 10/01/23 16:29 Respiratory Effort Normal, Non-Labored 10/01/23 16:32 Blood Pressure 147/67 H 10/01/23 16:29 Blood Pressure Position Sitting 10/01/23 16:29 Pulse Oximetry 98 10/01/23 16:29 Oxygen Delivery Method Room Air 10/01/23 16:29 Oxygen Flow Rate 0 10/01/23 16:29 Pain Level 7 10/01/23 17:13 Medical Decision Making Emergent evaluation after bee sting. Patient has a noted localized reaction. I do not suspect cellulitis or septic arthritis. Recommend taking Claritin and Pepcid. Will give first dose of steroid in the emergency department and prescribe a Medrol Dosepak for home. Advised topical hydrocortisone or Benadryl cream. Return precautions advised Quality:SDOH Health Related Social Needs: No Data to Display PFSH All Active Problems Allergic reaction to bee sting (Acute) De Quervain's tenosynovitis, left (Acute) Tear of right gluteus medius tendon (Acute) Trochanteric bursitis, right hip (Acute) Depo-Medrol injection: 02/10/2022; 10/31/2021 Trochanteric bursectomy and IT band release 04/25/22 Hypertension (Chronic) Low back pain (Acute) Medical History Iliotibial band syndrome of right side Seborrheic keratoses Depression History of abnormal mammogram Obesity Thrombocytopenia 1998 Miscarriage Tree nut allergy Adjustment disorder with depressed mood Family History Other Family history of breast cancer Family history of heart disease Social History Smoking/Tobacco Use Status: Never Smoking risk assessment performed?: Yes Alcohol Intake: current Alcohol Intake frequency: holidays/special occasions only Alcohol type: wine Drug use: Never Substance use type: does not use Do you feel safe at home: Yes Do you feel safe in your relationship?: Yes
== END 2023-10-01 17:18 | disposition home or self-care (01) ==
PROVIDERS: Emergency Provider Emergency Medicine
DX: T63.441A Toxic effect of venom of bees, accidental (unintentional), initial encounter (principal)
CPT/HCPCS: 99283; 99284; J8540

== ENCOUNTER 2024-01-13 10:25 | Day surgery (SDC) | payer OTHER, SELFPAY ==
[2024-01-13 10:59] VITALS: BP 145/86; PULSE 71; RESP 16; TEMP 36.4; O2SAT 98
[2024-01-13] MEDS: Celecoxib 200 MG CAP 400 MG PO (11:04)
[2024-01-13] MEDS: Acetaminophen 500 MG TAB 1000 MG PO (11:04)
--- NOTE | 2024-01-13 11:05 | W.ANESPRE ---
General Info Date of Service Date Performed: 01/13/24 Height: 5 ft 7 in Weight: 118.2 kg Body Mass Index (BMI): 40.8 Surgical Procedure: Operation Date: 01/13/24 13:10 Proposed Procedure Side Surgeon p Wrist Dequervains Release Left Francis Aranda MD Meds Allergies and Home Medications Allergies Allergy/AdvReac Type Severity Reaction Status Date / Time cashew nut Allergy Severe throat Unverified 01/13/24 10:52 swelling/rash Penicillins Allergy Unknown RASH Unverified 01/13/24 10:52 Sulfa (Sulfonamide Allergy Unknown RASH Unverified 01/13/24 10:52 Antibiotics) sulfamethoxazole (From Allergy RASH Unverified 01/13/24 10:52 Bactrim) trimethoprim (From Bactrim) Allergy RASH Unverified 01/13/24 10:52 Home Medication ?Medication ?Instructions ?Recorded sertraline 25 mg tablet (Zoloft) 25 mg PO DAILY 09/24/22 trazodone 50 mg tablet 50 mg PO DAILY 09/24/22 lisinopril 10 mg tablet 10 mg PO DAILY 12/31/23 calcium phosphate,dibasic 77 tab PO 01/13/24 mg-vitamin D3 400 unit tablet magnesium 250 mg tablet 250 mg PO DAILY 01/13/24 Current Visit Medications: Current Medications Generic Name Dose Route Start Last Admin Trade Name Percyq PRN Reason Stop Dose Admin Acetaminophen 1,000 mg 01/13/24 06:00 01/13/24 11:04 Acetaminophen 500 Mg Tab PO 01/13/24 18:00 1,000 mg PREOP MARIANNA Administration Celecoxib 400 mg 01/13/24 06:00 Celecoxib 200 Mg Cap PO 01/13/24 18:00 PREOP MARIANNA Ringer's Solution 1,000 mls @ 80 mls/hr 01/13/24 06:00 IV 02/11/24 23:59 INFUSION MARIANNA Cefazolin Sodium/Dextrose 2 gm in 50 mls @ 100 mls/hr 01/13/24 06:00 Ancef Duplex IVPB 01/13/24 18:00 PREOP MARIANNA IV Miscellaneous Supplies 1 each 01/13/24 06:00 Iv Access IV 02/11/24 23:59 DIRECTED MARIANAN Sodium Chloride 0 ml 01/13/24 06:00 Normal Saline Flush 10 Ml Syr IV 02/11/24 23:59 PRN PRN Sodium Chloride 0 ml 01/13/24 06:00 Normal Saline 10 Ml Vial IJ 02/11/24 23:59 DIRECTED PRN Sterile Water 0 ml 01/13/24 06:00 Water,Injection,Sterile 10 Ml Vial IJ 02/11/24 23:59 DIRECTED PRN PFSH Active Problems Active Problems: Problem Status Onset Code De Quervain's tenosynovitis, left Acute M65.4 Tear of right gluteus medius tendon Acute S76.011A Trochanteric bursitis, right hip Acute M70.61 Hypertension Chronic I10 Low back pain Acute M54.50 Medical History Medical History Iliotibial band syndrome of right side Seborrheic keratoses Depression History of abnormal mammogram Obesity Thrombocytopenia 1998 Miscarriage Tree nut allergy Adjustment disorder with depressed mood Surgical History Surgical History History of hip surgery Trochantric bursectomy and IT band Tobacco Smoking/Tobacco Use Status: Never Alcohol Alcohol Intake: never Substance Use Substance use: Never Substance use type: does not use Vital Signs and Lab Results Vital Signs Most Recent Vital Signs in EMR: Most Recent Vital Signs Temp Pulse Resp BP Pulse Ox 36.4 C L 71 16 145/86 H 98 01/13/24 10:59 01/13/24 10:59 01/13/24 10:59 01/13/24 10:59 01/13/24 10:59 Lab Results Blood Type / Crossmatch: No Data to Display Complete Blood Count: No Data to Display Complete Metabolic Panel: No Data to Display Liver Function Panel: No Data to Display Coagulation Panel: No Data to Display Cardiac Panel: No Data to Display Arterial Blood Gas: No Data to Display Venous Blood Gas: No Data to Display Pancreas Panel: No Data to Display Thyroid Panel: No Data to Display Infectious Disease: No Data to Display Blood Cultures: No Data to Display Toxicology Panel: No Data to Display Anesthesia Assessment and Plan Anesthesia History Personal History: No History of Anesthesia Complications Family History: Other Exercise Tolerance Exercise Tolerance: Metabolic Equivalents>4 Pertinent Negatives Pertinent Negatives: No Major Cardiovascular Symptoms or Complaints and No Major Pulmonary Symptoms or Complaints Cardiac & Pulmonary Exam Cardiac Exam: Normal S1/S2 Heart Sounds Pulmonary Exam: Clear Bilateral Breath Sounds Implantable Cardiac Device Does patient have a Pacemaker or an ICD?: No Airway Exam Known Difficult Airway: No Mallampati Class: 3 Mouth Opening: Normal (> 3cm) Thyromental Distance: Greater than 3 cm Neck Range of Motion: Full ROM Neck Circumference: Thick Teeth Condition: Normal Dentition ASA Classification ASA Score: ASA 3 Emergency Case?: No NPO Status NPO Status: NPO Clears >2 hours, Solids >8 hours Anesthesia Plan Resuscitation Status: Full Code Anesthesia Technique: General Anesthesia Airway Planned: Natural Airway Monitors Used: Standard Monitors
[2024-01-13 11:07] VITALS: BMI 40.8
[2024-01-13] MEDS: Lactated Ringers 1,000 ML 80 ML IV (11:22)
[2024-01-13] MEDS: ceFAZolin 2 GM/50 ML BAG IVPB (11:53)
[2024-01-13] MEDS: Lidocaine 1% Multi-Dose W/EPI 1/100,000 50 ML VIAL (11:59)
--- NOTE | 2024-01-13 12:19 | ROE_ITS ---
Date of service: 01/13/24 Time of Service: 11:50 Operative Note Operative Note DATE OF PROCEDURE: 01/13/24 PRE-OP DIAGNOSIS: Left DeQuervain's Tenosynovitis POST-OP DIAGNOSIS: same PROCEDURE: Left First Extensor Compartment Release SURGEON: Francis Aranda ANESTHESIA TYPE: General:No Airway Refer to Anesthesia Record ESTIMATED BLOOD LOSS: 5 PATHOLOGY: none sent TOURNIQUET TIME: 0 COMPLICATIONS: None Patient was transported to: same day Patient's condition: stable Indications: Margie is a 58 year old female who has had symptoms of Dequervain's tenosynovitis. Nonoperative treatment options had been trialed. Given their failure, I offered operative intervention. I reviewed the technical details of a first extensor compartment release. I reviewed the risk of the procedure to include bleeding, infection, pain, stiffness, tendon instability, damage to the superficial radial nerve, and complete release. Despite these risks, the patient elected to proceed. Findings: There was a tightened first excessive compartment. Procedure Description: Margie was greeted in the preoperative holding area. Name and surgical site were confirmed. The history and physical was completed. The consent was reviewed the patient and signed. She was taken back to the operating room. The patient was placed in the supine position and monitored anesthesia care was initiated. The left was then prepped with ChloraPrep and draped in a standard fashion after a nonsterile tourniquet was placed high up onto the arm. Prophylactic antibiotics in the form of cefazolin were administered. A timeout was performed for safe surgery. The surgical site was drawn on the skin. The planned surgical field was anesthetized with 0.25% bupivacaine with epinephrine. A 2 cm incision was made longitudinally over the radial styloid. The skin was incised only. The deep tissue and subcutaneous fat was dissected with a tenotomy scissors trying to protect any branches of the superficial radial nerve. Any branches that were identified were retracted out of the way. The first compartment extensor tendons were then identified. The distal aspect of the first compartment was noted and were released. This release was performed more on the dorsal side to prevent tendon subluxation. The entirety of the first extensor compartment was then released. The slips of the abductor pollicis longus tendon were inspected. They removed to confirm the appropriate motion of the thumb. The extensor pollicis brevis tendon was then identified. There was one small subcompartment containing the EPB tendon. It was fully released. Traction on the tendon was also used to confirm appropriate extension of the thumb confirming the release of the appropriate tendon. The dorsal radial surface of the radius was once again inspected to make sure there is no other sub-compartments or other restrictions to tendon motion. The wound was then thoroughly irrigated. The deep tissue was closed with a 3-0 Vicryl. The skin was closed with a running s ubjective 4-0 Monocryl. The hand was dressed with Xeroform, 4 x 4's, Kerlex and ABDI wrap into a soft thumb spica splint. All counts were correct. Patient was transferred back to same day surgery area in stable condition.
[2024-01-13 12:20] VITALS: BP 154/85; PULSE 82; RESP 16; TEMP 36.3; O2SAT 94
--- NOTE | 2024-01-13 12:23 | W.PM.DSUDISC ---
Date of service: 01/13/24 Time of Service: 12:23 Discharge Plan Disposition Patient Disposition: Home Condition: Good Discharge Details Reason For Visit: De Quervain's Release L wrist Attending Provider: Francis Aranda Primary Care Provider: Unknown,Unknown Home Meds and New Rx's Prescriptions: New acetaminophen 500 mg tablet 1,000 mg PO TID Qty: 90 0RF hydrocodone-acetaminophen 5-325 mg tablet 1 tab PO Q6H PRN (Reason: pain) Qty: 6 0RF ibuprofen 600 mg tablet 600 mg PO TID PRN (Reason: pain) Qty: 90 0RF Continued trazodone 50 mg tablet 50 mg PO DAILY sertraline [Zoloft] 25 mg tablet 25 mg PO DAILY lisinopril 10 mg tablet 10 mg PO DAILY calcium phos,dibas-vitamin D3 77-400 mg-unit tablet PO Patient Comments: pt. reports it is just vit d magnesium 250 mg tablet 250 mg PO DAILY Patient Comments: pt. reports taking 500 mg Discharge Instructions Additional Instructions: Martha's Discharge Instructions Activity: You should keep the hand elevated as much as possible for the first few days. You may use the other fingers as tolerated but avoid trying to do too much too soon. You may perform light activities with the splint in place. Dressing/Cast: Your splint should stay in place at all times. Do NOT get it wet. You may loosen the ABDI wrap if you feel it is too tight and then rewrap more loosely. Medications: - You should take Tylenol and Ibuprofen for baseline pain control. - You have Hydrocodone for breakthrough pain. - You may apply ice over the thumb. Follow-up: 7-10 days Stand Alone Forms: Anesthesia Discharge Inst., Porfirio Rodriguez (U) Referrals: Francis Aranda MD [ [facility] STAFF PHYSICIAN] - Activity:: Activity as Tolerated Remove Dressings/Wound Care:: Do Not Remove Shower/Bathe:: Cover Diet:: As Tolerated Discharge Orders Discharge Orders: Discharge Order (Routine); Ordered 01/13/24 Ordered By: Elder Samaniego DS: Diagnosis Discharge Diagnosis (1) De Quervain's tenosynovitis, left: Status: Acute
[2024-01-13 12:46] VITALS: BP 159/89; PULSE 64; RESP 16; TEMP 36; O2SAT 95
--- NOTE | 2024-01-13 13:15 | W.ANESPOSTOP ---
Postoperative Evaluation Date, Time and Location Date Performed: 01/13/24 Time Performed: 12:25 Patient Location: Day Surgery Unit Vital Signs Most Recent Imported Vital Signs: Most Recent Vital Signs Temp Pulse Resp BP Pulse Ox 36.0 C L 64 16 159/89 H 95 01/13/24 12:46 01/13/24 12:46 01/13/24 12:46 01/13/24 12:46 01/13/24 12:46 Pain Score Most Recent Pain Score: Most Recent Pain Score Pain Level 0 01/13/24 12:46 Assessment Mental Status: Awake (Alert & Oriented to Patient Baseline) Airway and Respiratory Function: Patent airway with normal (patient baseline) respiratory exam Cardiovascular Function: Hemodynamically Stable Hydration Status: Adequately Hydrated Nausea & Vomiting: No Nausea or Vomiting Pain: Pt. Denies Any Pain Peripheral Nerve Block: Patient did not receive a nerve block
== END 2024-01-13 13:13 | disposition home or self-care (01) ==
PROVIDERS: Visit Provider Student in an Organized Health Care Education/Training Program
PROC: (CPT 25000; principal; 2024-01-13 13:00)
DX: M65.4 Radial styloid tenosynovitis [de Quervain] (principal)
CPT/HCPCS: 25000; J0690; J2003; J2004; J2250; J2704; J3010

== ENCOUNTER 2024-05-06 00:54 | Outpatient (CLI) | payer OTHER, SELFPAY ==
--- OUTSIDE RECORDS SUMMARY | 2024-05-06 01:04 | XMS_ITS | Encounter Summary ---
[place] [address] Care Team Providers Care Rattlesnake Farmer Name Role Phone Yolie Villegas APRN Primary Care Provider [phone] Encounter Details Date Type Department Care Team (Late st Contact Info) Description 06/04/2021 Refill Dermatology at [address] [place] [id number] Ami Billingsley, [employer]ITAL [employer]DR[employer]ISER Social History Tobacco Use Types Packs/Day Years Used Date Smoking Tobacco: Never Smokeless Tobacco: Never Sex and Gender Information Value Date Recorded Sex Assigned at Not on file Gender Identity Not on file Sexual Orientation Not on file documented as of this encounter Plan of Treatment Not on file documented as of this encounter Visit Diagnoses Not on filedocumented in this encounter Care Teams Rattlesnake Farmer Relationship Specialty Start Date End Date Yolie Villegas [place] [place] [address] PCP - General Family Medicine 04/21/17 10/02/22 documented as of this encounter
--- OUTSIDE RECORDS SUMMARY | 2024-05-06 01:04 | XMS_ITS | Encounter Summary ---
Author Organization [facility] [place] [address] Care Team Providers Care Assembly Person Name Role Phone Yolie Villegas APRN Primary Care Provider [phone] Encounter Details Date Type Department Care Team (Late st Contact Info) Description 09/06/2019 Telephone H[place]ology [place] [address] Teri Abad Social History Tobacco Use Types Packs/Day Years Used Date Smoking Tobacco: Never Smokeless Tobacco: Never Sex and Gender Information Value Date Recorded Sex Assigned at Not on file Gender Identity Not on file Sexual Orientation Not on file documented as of this encounter Miscellaneous Notes * Telephone Encounter - Teri Abad - 09/06/2019 9:02 AM EDT Spoke to patient to schedule appt w/PROGRAM SCHEDULE CLERK in [facility]. Pt said issue has resolved, and has decided not to see provider here. Pt has our phone number if she decides she would like an appt. documented in this encounter Plan of Treatment Not on file documented as of this encounter Visit Diagnoses Not on filedocumented in this encounter Care Teams Assembly Person Relationship Specialty Start Date End Date Yolie Villegas APR[place] [place] [address] PCP - General Family Medicine 04/21/17 10/02/22 documented as of this encounter
--- OUTSIDE RECORDS SUMMARY | 2024-05-06 01:04 | XMS_ITS | Encounter Summary ---
Author Organization [facility] [place] [address] Care Team Providers Care Materials Supervisor Name Role Phone Yolie Villegas APRN Primary Care Provider [phone] Encounter Details Date Type Department Care Team (Late st Contact Info) Description 08/30/2019 Ancillary Procedure Radiology Library at [facility] [place] [id number] Yolie Villegas APRN [address] [place] [address] Social History Tobacco Use Types Packs/Day Years Used Date Smoking Tobacco: Never Smokeless Tobacco: Never Sex and Gender Information Value Date Recorded Sex Assigned at Not on file Gender Identity Not on file Sexual Orientation Not on file documented as of this encounter Plan of Treatment Not on file documented as of this encounter Procedures Procedure Name Priority Date/Time Associated Diagnosis Comments FILM LIBRARY STORAGE ONLY MAMMO Routine 08/30/2019 12:00 AM EDT documented in this encounter Results * Film Library- Storage Only Mammo (08/30/2019 12:00 AM EDT) Narrative RAD - 09/05/2019 11:23 AM EDT This exam is auto-finalizing. It's purpose is for storage only. Yolie Villegas APRN [employer] FILM LIBRARY ORD ERABLES [place], [place] documented in this encounter Visit Diagnoses Not on filedocumented in this encounter Care Teams Materials Supervisor Relationship Specialty Start Date End Date Yolie Villegas APRN [address] [place] [address] PCP - General Family Medicine 04/21/17 10/02/22 documented as of this encounter
--- OUTSIDE RECORDS SUMMARY | 2024-05-06 01:04 | XMS_ITS | Encounter Summary ---
Author Organization [facility] Address [address] [place] [address] Care Team Providers Care Paving Rammer Name Role Phone Unavailable Primary Care Provider Unavailabl e Encounter Details Date Type Department Care Team (Late st Contact Info) Description 10/29/2006 Results Only [facility] [place] - Maple conversion [address] [place] [address] Sadny Cao, SURGICAL ASSISTANT [address] [facility],[address] [address] Social History Tobacco Use Types Packs/Day Years Used Date Smoking Tobacco: Never Assessed Comments Unknown Sex and Gender Information Value Date Recorded Sex Assigned at Not on file Legal Sex Female 18:35 EST Gender Identity Not on file Sexual Orientation Not on file documented as of this encounter Plan of Treatment Not on file documented as of this encounter Procedures Procedure Name Priority Date/Time Associated Diagnosis Comments HPV DETECTION, HIGH RISK TYPES Routine 10/29/2006 8:50 EDT CYTOPATHOLOGY Routine 10/29/2006 0:00 EDT documented in this encounter Results * HUMAN PAPILLOMA VIRUS DNA TEST (10/29/2006 8:50 EDT) Specimen Description Cervix, ThinPrep vial [facility] Result Negative for HPV types 16, 18, 31, 33, 35, 39, 45, 51, 52, 56, 58, 59, and 68. [facility] Report Status Final [id number] [facility] 10/29/2006 8:50 EDT 11/04/2006 8:50 EDT us Sandy Cao NP MICROBIOLOGY - GENERAL ORDER YURY Final Result [facility] [address] [place] [address] * CYTOPATHOLOGY (10/29/2006 0:00 EDT) Pathology Report: CYTOPATHOLOGY REPORT Reports generated via electronic interface contain original data; however they are lacking the format of the original report. Caution should be taken when reading/interpreti ng unformatted reports. Name: ? REHANA FLEMING ? Accession #: ? [id number] : ? 1965 (Age: 41) ??F ?Collect Date: ? 10/29/2006 Location: ? [facility] ? Receive Date: ? 10/30/2006 Provider: ?SANDY CAO NP Copy to: ? Specimen/Source: ?ThinPrep Pap Test, Cervix/Endocervix, processed on [employer] ThinPrep Imaging System, with manual evaluation Last Menstrual Period: ? 10/17/06 Previous Gynecologic Pathology: ? Yes: abn pap years ago Other: ? HPVDX - HPV testing requested regardless of diagnosis on current ThinPrep Pap test. ? SPECIMEN ADEQUACY ? Satisfactory for Evaluation - transformation zone component present GENERAL CATEGORIZATION ? Negative for Intraepithelial Lesion or Malignancy ? Document reviewed and electronically signed by: ? Lynan Alexey, CT(ASCP) ? Report Date: ??11/03/2006 15:30 End of Report [facility] 10/29/2006 10/30/2006 us Sandy Cao NP PATHOLOGY ORDERABLES Final R esult [facility] [address] [place] [address] documented in this encounter Visit Diagnoses Not on filedocumented in this encounter
--- OUTSIDE RECORDS SUMMARY | 2024-05-06 01:04 | XMS_ITS | Clinical Summary ---
Author Organization [facility] Address [facility] [place] [address] Care Team Providers Care Drafter Heating And Ventilating Name Role Phone Willow Gupta APRN Primary Care Provider [phone] Allergies Active Allergy Reactions Criticality Noted Date Comments Sulfamethoxazole-Trimethoprim Rash 2020 Tree Nut 04/24/2020 Penicillins 10/16/2022 Sulfa (Sulfonamide Antibiotics) 03/31 Medications Medication Sig Dispensed Refills Start Date End Date Status hydroCHLOROthiazide (Hydrodiuril) 25 mg Tablet 04/18/2020 Active metroNIDAZOLE (METROGEL) 0.75 % Gel Apply twice daily to face after washing 45 g 5 06/04/2021 Active Additional Information Patient not taking.Reported on 10/16/2022 traZODone (Desyrel) 50 mg tablet TAKE 1 TABLET BY MOUTH AT BEDTIME FOR INSOMNIA 09/22/2022 Active sertraline (Zoloft) 25 mg tablet TAKE 1 TABLET BY MOUTH ONCE A DAY IN THE MORNING 09/22/2022 Active Active Problems Problem Noted Date Diagnosed Date Basal cell carcinoma of skin of other part of tr unk 04/21/2017 Family History Medical History Relation Comments Cancer Father Unknown type Breast Cancer Maternal Cousin 1 Breast Cancer Maternal Cousin 2 Breast Cancer Maternal Cousin 3 Breast Cancer Maternal Cousin 4 Ovarian Cancer Neg Hx Relation Status Comments Father Maternal Cousin 1 Alive Maternal Cousin 2 Alive Maternal Cousin 3 Alive Maternal Cousin 4 Social History Tobacco Use Types Packs/Day Years Used Date Smoking Tobacco: Never Smokeless Tobacco: Never Tobacco Cessation:Counseling Given: Not Answered Alcohol Use Standard Drinks/Week Comments Not Currently 0 (1 standard drink = 0.6 oz pur e alcohol) Sex and Gender Information Value Date Recorded Sex Assigned at Not on file Gender Identity Not on file Sexual Orientation Not on file Last Filed Vital Signs Vital Sign Reading Time Taken Comments Blood Pressure 142/81 04/24/2020 7:49 AM EST Pulse 76 04/24/2020 7:49 AM EST Temperature - - Respiratory Rate 17 04/24/2020 7:49 AM EST Oxygen Saturation 98% 04/24/2020 7:49 AM EST Inhaled Oxygen Concentration - - Weight 119.9 kg (264 lb 6.4 oz) 10/16/2022 8:36 AM EDT Height 170 cm (5' 6.93) 10/16/2022 8:36 AM EDT Body Mass Index 41.5 10/16/2022 8:36 AM EDT Plan of Treatment Health Maintenance Due Date Last Done Comments CT Colonography 1967 Colonoscopy 1967 Colorectal Cancer Screening 1965 FIT DNA 1967 FIT 1967 Sigmoidoscopy (10 year) with FIT yearly 1967 Sigmoidoscopy 1965 HIV screen 1985 Hepatitis C Screening 1985 Lipid Screening 1985 Hepatitis B vaccine (0-59 yrs) (1) 1986 Tetanus/Diphtheria/Pertussis Vaccines (1 - Tdap) 01/27 HPV test 1997 PAP Smear 1997 Breast Cancer Share Decision Needed 2007 Breast Cancer screening 2007 Diabetes Screening (HgbA1C or Glucose) 2007 Pneumoccocal Vaccine: 50+ (1 of 1 - PCV) 2017 Zoster vaccine (1 of 2) 2017 Advance Directive 2022 Covid-19 Vaccine (1 - 2023- season) 2023 Influenza (Flu) vaccine (1 o f 1 - Influenza standard series) 11/29/2023 Care Teams Drafter Heating And Ventilating Relationship Specialty Start Date End Date Willow Gupta, SOLUTION ANALYST [address] [facility], [place] [id number] PCP - General Family Medicine 10/03/22
--- OUTSIDE RECORDS SUMMARY | 2024-05-06 01:04 | XMS_ITS | Encounter Summary ---
Author Organization [facility] Address [address] [place] [address] Care Team Providers Care Quality Tester Name Role Phone Unknown, Provider MD Primary Care Provider Unava ilable Encounter Details Date Type Department Care Team (Late st Contact Info) Description 08/07/2010 Results Only [facility] Laboratory Services - [facility] ([facility]) [address] [place], [place] [id number] Lincoln Solano MD [address] [place] [id number] Social History Tobacco Use Types Packs/Day Years [...] Procedure Name Priority Date/Time Associated Diagnosis Comments SURGICAL PATHOLOGY Routine 08/07/2010 0:00 EDT documented in this encounter Results * SURGICAL PATHOLOGY (08/07/2010 0:00 EDT) Pathology Report: SURGICAL PATHOLOGY REPORT ? Reports generated via electronic interface contain original data; ? however they are lacking the format of the original report. ? Caution should be taken when reading/interpreting unformatted reports. ? Name: ? REZA, REHANA J ? Accession #: ? [id number] ? : ? 1965 (Age: 45) ??F ? Collect Date: ? 08/07/2010 ? Location: ? [facility] ? Receive Date: ? 08/08/2010 ? Provider: LINCOLN SOLANO MD ? Copy to: PATI W BESCH WHITE SHOE RAGGER ? Final Pathologic Diagnosis: ? Skin of thigh, right, excisional biopsy: ? - Epidermal ulceration with reactive changes, dermal fibrosis, and granulation ?? tissue formation. ??See ?comment. ? Comment: ? Multiple sections of the excisional biopsy were reviewed. ??The biopsy ? primarily shows reactive/reparative changes with a central focus of ulceration. There is a non-specific mild inflammatory infiltrate. ??The underlying ? subcutaneous tissue has focal fat necrosis. ??There is no evidence of malignancy. No melanocytic proliferation is identified. ??Correlation with the clinical ? history is recommended, including previous biopsy at this site. (Dr. Archer)/mpl ? Microscopic Description: ? Sections consist of an excision of skin that includes subcutis. ??Centrally, there is a focus of epidermal ulceration with overlying crust. ??The remainder of the intact epidermis shows reactive changes with mild scale formation. ??The ? underlying dermis is fibrotic and has granulation tissue, particularly beneath ?? the zone of ulceration. ??There is a mild non-specific lymphomononuclear ? infiltrate. ??The inflammation fibrosis extends into the deep reticular dermis ?? and the underlying superficial subcutis has fat necrosis. ??There is ? syringometaplasia in the vicinity of the ulcer. ??Additional deeper sections show similar features. ??(Dr. Archer)/mpl ? Document reviewed and electronically signed by: ? DIEGO ARCHER MD ? Report ??Date: 08/13/2010 15:35 ? By the signature above, the attending physician certifies that he/she has ? personally conducted a gross and/or microscopic examination of the described ? specimens and rendered or confirmed the above diagnosis. ? Specimen(s) Received: ? Skin biopsy R thigh with suture on superior side (excisional biopsy) ? Clinical History: ? Not listed ? Gross Description: ? Received in formalin labelled Rehana Fleming and skin biopsy R thigh is an oriented elliptical excision of neil-white skin with a suture eccentrically ?? located on one side designating the superior aspect. ??The suture is ? re-designated as 1 o'clock with the proximal tip designated as 12 o'clock. ??The specimen measures 1.2 cm from 12 o'clock ??6 o'clock, 0.8 cm from 9 o'clock ??3 ?? o'clock, and is excised to a depth of 0.6 cm. ??There is a central 0.3 x 0.2 cm ?? ovoid slightly depressed neil crusted area. ??The surgical margin of the 3 o'clock side is inked blue and the surgical margin of the 9 o'clock side is inked black. The specimen is serially sectioned and entirely submitted as follows: ? BLOCK MALONEY ? A1 ?12 o'clock tip, reverse en face ? A2 ?Central sections ? A3 ?6 o'clock tip, reverse en face ? (Mari Oconnell)/mms ? End of Report ? [facility] 08/07/2010 08/08/2010 18: 01 EDT us Lincoln Solano MD PATHOLOGY ORDERABLES Final Resul t [facility] [address] [place] [address] documented in this encounter Visit Diagnoses Not on filedocumented in this encounter Care Teams Quality Tester Relationship Specialty Start Date End Date Unknown, Provider, PCP - General 08/08/10 documented as of this encounter
--- OUTSIDE RECORDS SUMMARY | 2024-05-06 01:04 | XMS_ITS | Encounter Summary ---
Author Organization [facility] [place] [address] Care Team Providers Care Pickling Operator Name Role Phone Yolie Villegas APRN Primary Care Provider [phone] Encounter Details Date Type Department Care Team (Late st Contact Info) Description 04/25/2022 Ancillary Procedure Radiology Library at [facility] [place] [address] Yolie Villegas APRN [address] [place] [address] [place] [address] Social History Tobacco Use Types [...] Associated Diagnosis Comments FILM LIBRARY STORAGE ONLY DX HIP Routine 04/25/2022 12:00 AM EST documented in this encounter Results * Film Library- Storage Only DX Hip (04/25/2022 12:00 AM EST) Narrative [facility] - 09/26/2022 9:02 AM EDT This exam is auto-finalizing. It's purpose is for storage only. Yolie Villegas APRN [employer] FILM LIBRARY ORD ERABLES [place], [place] documented in this encounter Visit Diagnoses Not on filedocumented in this encounter Care Teams Pickling Operator Relationship Specialty Start Date End Date Yolie Villegas APRN [address] [place] [address] PCP - General Family Medicine 04/21/17 10/02/22 documented as of this encounter
--- OUTSIDE RECORDS SUMMARY | 2024-05-06 01:04 | XMS_ITS | Encounter Summary ---
Author Organization [place] [address] Care Team Providers Care Ash Kier Boiler Name Role Phone Yolie Villegas APRN Primary Care Provider [phone] Encounter Details Date Type Department Care Team (Late st Contact Info) Description 02/28/2021 Ancillary Procedure Radiology Library at [facility] [place] [address] Yolie Villegas APRN [address] [place] [address] [place] [address] Social History Tobacco Use Types [...] FILM LIBRARY STORAGE ONLY DX HIP Routine 02/28/2021 12:00 AM EST documented in this encounter Results * Film Library- Storage Only DX Hip (02/28/2021 12:00 AM EST) Narrative [facility] - 09/26/2022 9:02 AM EDT This exam is auto-finalizing. It's purpose is for storage only. Yolie Villegas APRN [employer] FILM LIBRARY ORD ERABLES [place], [place] documented in this encounter Visit Diagnoses Not on filedocumented in this encounter Care Teams Ash Kier Boiler Relationship Specialty Start Date End Date Yolie Villegas APRN [address] [place] [address] PCP - General Family Medicine 04/21/17 10/02/22 documented as of this encounter
--- OUTSIDE RECORDS SUMMARY | 2024-05-06 01:04 | XMS_ITS | Encounter Summary ---
Author Organization [facility] Address [address] [place] [address] Care Team Providers Care Medical Services Coordinator Name Role Phone Unavailable Primary Care Provider Unavailabl e Encounter Details Date Type Department Care Team (Late st Contact Info) Description 07/16/2010 Results Only [facility] Laboratory Services - [facility] ([facility]) [address] [place] [address] Sandy Cao NP [address] [facility],[address] [address] Social History Tobacco Use Types [...] Procedure Name Priority Date/Time Associated Diagnosis Comments CYTOPATHOLOGY Routine 07/16/2010 0:00 EDT documented in this encounter Results * CYTOPATHOLOGY (07/16/2010 0:00 EDT) Pathology Report: CYTOPATHOLOGY REPORT ? Reports generated via electronic interface contain original data; ? however they are lacking the format of the original report. ? Caution should be taken when reading/interpreti ng unformatted reports. ? Name: ? REZA, REHANA ? Accession #: ? [id number] ? : ? 1965 (Age: 45) ??F ?Collect Date: ? 07/16/2010 ? Location: ? [facility] ? Receive Date: ? 07/17/2010 ? Provider: ?SANDY W STEVE RESTAURANT LEAD ? Copy to: ? Specimen/Source: ?Pap Test, Cervix/Endocervix, ThinPrep Imaging System ? with manual evaluation ? Last Menstrual Period: ? 4/17/11 ? Previous Gynecologic Pathology: ? Yes: 1 abnormal pap many years ago ? SPECIMEN ADEQUACY ? Satisfactory for Evaluation ? - transformation zone component present ? GENERAL CATEGORIZATION ? Negative for Intraepithelial Lesion or Malignancy ? Document reviewed and electronically signed by: ? Huong Mica, CT(ASCP) ? Report Date: ??07/23/2010 07:39 ? End of Report ? [facility] 07/16/2010 07/17/2010 us Sandy Cao NP PATHOLOGY ORDERABLES Final R esult [facility] [address] [place] [address] documented in this encounter Visit Diagnoses Not on filedocumented in this encounter
--- OUTSIDE RECORDS SUMMARY | 2024-05-06 01:04 | XMS_ITS | Encounter Summary ---
Author Organization [facility] Address [address] [place] [address] Care Team Providers Care Rehab Liaison Name Role Phone Unknown, Provider Primary Care Provider Unava ilable Encounter Details Date Type Department Care Team (Latest Contact Info) Description 12/21/2017 15:19 EDT - 12/21/2017 23:59 EDT Hospital Encounter [address] [address] Unknown, ProviderMD Discharge Disposition: Home or Self Care Social History Tobacco Use Types Packs/Day Years Used Date Smoking Tobacco: Never Assessed Comments Unknown Sex and Gender Information Value Date Recorded Sex Assigned at Not on file Legal Sex Female 18:35 EST Gender Identity Not on file Sexual Orientation Not on file documented as of this encounter Discharge Disposition Disposition Code Departure Means Destination Home or Self [facility] documented in this encounter Plan of Treatment Not on file documented as of this encounter Visit Diagnoses Not on filedocumented in this encounter Care Teams Rehab Liaison Relationship Specialty Start Date End Date Unknown, Provider, PCP - General 08/08/10 documented as of this encounter
--- OUTSIDE RECORDS SUMMARY | 2024-05-06 01:04 | XMS_ITS | Encounter Summary ---
Author Organization [place] [address] Care Team Providers Care Exploration Geologist Name Role Phone Yolie Villegas APRN Primary Care Provider [phone] Encounter Details Date Type Department Care Team (Late st Contact Info) Description 08/03/2018 Ancillary Procedure Radiology Library at [facility] [place] [address] Yolie Villegas APRN [address] [place] [address] Social History Tobacco Use Types [...] Comments FILM LIBRARY STORAGE ONLY MAMMO Routine 08/03/2018 12:00 AM EDT documented in this encounter Results * Film Library- Storage Only Mammo (08/03/2018 12:00 AM EDT) Narrative RAD - 09/05/2019 11:46 AM EDT This exam is auto-finalizing. It's purpose is for storage only. Yolie Villegas APRN [employer] FILM LIBRARY ORD ERABLES [place], [place] documented in this encounter Visit Diagnoses Not on filedocumented in this encounter Care Teams Exploration Geologist Relationship Specialty Start Date End Date Yolie Villegas APRN [address] [place] [address] PCP - General Family Medicine 04/21/17 10/02/22 documented as of this encounter
--- OUTSIDE RECORDS SUMMARY | 2024-05-06 01:04 | XMS_ITS | Clinical Summary ---
Author Organization [facility] Address [address] [place] [address] Care Team Providers Care Chemical Engineer Name Role Phone Unknown, Provider MD Primary Care Provider Unava ilable Social History Tobacco Use Types Packs/Day Years Used Date Smoking Tobacco: Never Assessed Interpersonal Safety Answer Date Record ed Physically Hurt Never 10/30/2019 Verbally Threaten Not on file 10/30/2019 Comments Unknown Sex and Gender Information Value Date Recorded Sex Assigned at Not on file Legal Sex Female 18:35 EST Gender Identity Not on file Sexual Orientation Not on file Plan of Treatment Health Maintenance Due Date Last Done Comments Hepatitis C Screen 1965 Hepatitis B Vaccine (1 of 3 - 19+ 3-dose series) 01/27 COVID-19 Vaccine ( season) 2023 Care Teams Chemical Engineer Relationship Specialty Start Date End Date Unknown, Provider, PCP - General 08/08/10
--- OUTSIDE RECORDS SUMMARY | 2024-05-06 01:04 | XMS_ITS | Encounter Summary ---
Author Organization [facility] Address [address] [place] [address] Care Team Providers Care Filter Operator Name Role Phone Unknown, Provider Primary Care Provider Unava ilable Encounter Details Date Type Department Care Team (Late st Contact Info) Description 12/21/2017 Results Only [facility] [phone] Gwyn Pace MD [address] [place] [address] Social History Tobacco Use Types [...] Date/Time Associated Diagnosis Comments SURGICAL PATHOLOGY Routine 12/21/2017 16 :25 EDT documented in this encounter Results * SURGICAL PATHOLOGY (12/21/2017 16:25 EDT) Pathology Report: SURGICAL PATHOLOGY REPORT Reports generated via electronic interface contain original data; however they are lacking the format of the original report. Caution should be taken when reading/interpret ing unformatted reports. Name: ? CINTHYA FLEMINGAntoinette Andrews ? Accession #: ? [id number] ? : ? 1965 (Age: 52) ??F ? Collect Date: ? 12/21/2017 ? Location: ? [facility] ? Receive Date: ? 12/21/2017 ? Provider: GWYN PACE MD Copy to: CHARLOTTE BALBUENA SATIN FINISHER ? Final Pathologic Diagnosis: A. ??COLON, TRANSVERSE POLYP, POLYPECTOMY: - Hyperplastic polyp. ?? B. ??COLON, DESCENDING POLYP, POLYPECTOMY: - Fragment of unremarkable colonic mucosa. - No polypoid lesion noted (multiple levels examined). Document reviewed and electronically signed by: COLETTE STOCK MD Report ??Date: 12/23/2017 15:28 By the signature above, the attending physician certifies that he/she has personally conducted a gross and/or microscopic examination of the described specimens and rendered or confirmed the above diagnosis. Specimen(s) Received: A. ??Transverse colon bx (polyp) B. ??Descending colon polyp bx Clinical History: Polyps Gross Description: A. ? Received in formalin labelled with proper patient identification (initials L, D) and transverse colon bx is a single light neil tissue fragment (0.2 x 0.2 x 0.2 cm). Submitted intact in block A1. B. ? Received in formalin labelled with proper patient identification (initials L, D) and descending colon polyp bx are two pink-neil tissue fragment (0.2 x 0.2 x 0.1 cm and 0.3 x 0.2 x 0.1 cm). Submitted intact in block B1. DOM Moran (ASCP) 12/22/2017 7:56 AM End of Report [facility] 12/21/2017 16:2 5 EDT 12/21/2017 16:25 EDT us Gwyn Pace MD PATHOLOGY ORDERABLES Fin al Result [facility] [address] [place] [address] documented in this encounter Visit Diagnoses Not on filedocumented in this encounter Care Teams Filter Operator Relationship Specialty Start Date End Date Unknown, Provider, PCP - General 08/08/10 documented as of this encounter
--- OUTSIDE RECORDS SUMMARY | 2024-05-06 01:04 | XMS_ITS | Encounter Summary ---
Author Organization [facility] Address [facility] [place] [address] Care Team Providers Care President [employer] Name Role Phone Alonso Willow Brumfield APRN Primary Care Provider [phone] Reason for Referral * Consultation (Routine) - Closed Specialty Diagnoses / Procedures Referred By Nadine t Referred To Contact Orthopaedics Diagnoses Trochanteric bursitis of right hip Kishan Shea MD [address] [place] [address] Soham Frias MD [facility] [place] [address] Referral ID Status Reason Start Date Expiration Date V isits Requested Visits Authorized [id number] Closed Consult, Test & Treat PCP Updated and/or Approved 10/03/2022 10/03/2023 6 6 Encounter Details Date Type Department Care Team (Latest Contact Info) Description 10/03/2022 Transcribe Orders eDH Incoming Referrals [phone] Kishan Shea MD [address] [place], [place] [phone] Trochanteric bursitis of right hip Social History Tobacco Use Types Packs/Day Years Used Date Smoking Tobacco: Never Smokeless Tobacco: Never Sex and Gender Information Value Date Recorded Sex Assigned at Not on file Gender Identity Not on file Sexual Orientation Not on file documented as of this encounter Plan of Treatment Scheduled Referrals Name Type Priority Associated Diagnoses Order Schedule Referral to Orthopaedics Outpatient Referral Routine Trochanteric bursitis of right hip Ordered: 10/03/2022 documented as of this encounter Visit Diagnoses Diagnosis Trochanteric bursitis of right hip Enthesopathy of hip region documented in this encounter Care Teams President [employer] Relationship Specialty Start Date End Date Willow Gupta, PERSONNEL RECRUITER [address] [place] [address] PCP - General Family Medicine 10/03/22 documented as of this encounter
--- OUTSIDE RECORDS SUMMARY | 2024-05-06 01:04 | XMS_ITS | Encounter Summary ---
Author Organization [facility] [place] [address] Care Team Providers Care Lead Investigator Name Role Phone Willow Gupta APRN Primary Care Provider [phone] Encounter Details Date Type Department Care Team (Latest Contact Info) Description 10/16/2022 Travel Social History Tobacco Use Types Packs/Day Years Used Date Smoking Tobacco: Never Smokeless Tobacco: Never Alcohol Use Standard Drinks/Week Comments Not Currently [...] on filedocumented in this encounter Care Teams Lead Investigator Relationship Specialty Start Date End Date Willow [place] [address] [place] [address] PCP - General Family Medicine 10/03/22 documented as of this encounter
--- OUTSIDE RECORDS SUMMARY | 2024-05-06 01:04 | XMS_ITS | Encounter Summary ---
Author Organization [facility] Address [address] [place] [address] Care Team Providers Care Home Health Care Social Worker Name Role Phone Unknown, Provider MD Primary Care Provider Unava ilable Encounter Details Date Type Department Care Team (Latest Contact Info) Description 02/04/2023 Lab Requisition [facility] Pathology & Laboratory Medicine - [facility] [address] [place] [address] Willow Gupta FNP [address] [facility] [address] [place] [address] Encounter for screening for human papillomavirus (HPV); Encounter for screening for malignant neoplasm of cervix; Encounter for general adult medical examination without abnormal findings Social History Tobacco Use Types Packs/Day Years [...] Procedure Name Priority Date/Time Associated Diagnosis Comments PAP TEST Today 02/03/2023 14:30 EST Encounter for screening for malignant neoplasm of cervix Encounter for general adult medical examination without abnormal findings HPV DNA DETECTION WITH GENOTYPING, PCR Today 02/03/2023 14:30 EST Encounter for screening for malignant neoplasm of cervix Encounter for general adult medical examination without abnormal findings documented in this encounter Results * HUMAN PAPILLOMAVIRUS (HPV) DETECTION-HIGH RISK TYPES (02/03/2023 14:30 EST) HPV other High Risk types, PCR Negative Negative 02/16/2023 17:24 [facility] Comment:No E6 or E7 mRNA is detected from HPV types 16,18,31,33,35,39,45,51,52,56,58,59,66, and 68 by director enterprise systems mediated amplification. Pap Test CERVIX UTERI STRUCTURE / Unknown 02/03/2023 14:30 EST 02/10/2023 9:24 EST Willow Gupta ARCH CUSHION SKIVING MACHINE OPERATOR MICROBIOLOGY - GENERAL ORDERA GAVINO Final Result [facility] [address] [place] [address] * PAP TEST (02/03/2023 14:30 EST) Specimens A. Cervix and/or Endocervix , ThinPrep Imaging System with Manual Evaluation 02/16/2023 17:24 [facility] Specimen Adequacy Satisfactory for Evaluation - transformation zone component present 02/16/2023 17:24 [facility] General Categorization Negative for intraepithelial lesion or malignancy 02/16/2023 17:24 [facility] Attestation . 02/16/2023 17:24 [facility] at 1724 Clinical History See below 02/17/20 23 17:24 [facility] HPV The result for the Human Papillomavirus (HPV) Detection-High Risk Types is Negative. No E6 or E7 mRNA is detected from HPV types 16,18,31,33,35,39 ,45,51,52,56,58,5 9,66, and 68 by director enterprise systems mediated amplification.Miriam ting was performed on specimen [id number] and was resulted on 02/16/2023 1724 EST by CAMERON, LAB INSTRUMENT RESULTS IN 02/16/2023 17:24 [facility] Performing Lab [facility] 02/16/2023 17:24 EST [facility] Scanned Images 02/16/2023 17:24 EST [facility] Pap Test CERVIX UTERI STRUCTURE / Unknown 02/03/2023 14:30 EST 02/04/2023 10:38 EST Willow Gupta ARCH CUSHION SKIVING MACHINE OPERATOR PATHOLOGY ORDERABLES Final Re sult Performing Organization Address City/State/[facility] Co de Phone Number [facility] [address] [place] [address] documented in this encounter Visit Diagnoses Diagnosis Encounter for screening for human papillomavirus (HPV) Special screening examination for human papillomavirus (HPV) Encounter for screening for malignant neoplasm of cervix Screening for malignant neoplasm of the cervix Encounter for general adult medical examination without abnormal findings Unspecified general medical examination documented in this encounter Care Teams Home Health Care Social Worker Relationship Specialty Start Date End Date Unknown, Provider, PCP - General 08/08/10 documented as of this encounter
--- OUTSIDE RECORDS SUMMARY | 2024-05-06 01:04 | XMS_ITS | Encounter Summary ---
Author Organization [facility] Address [address] [place] [address] Care Team Providers Care Watermelon Inspector Name Role Phone Unknown, Provider Primary Care Provider Unava ilable Encounter Details Date Type Department Care Team (Late st Contact Info) Description 05/23/2014 Results Only [facility] Laboratory Services - [facility] ([facility]) [address] [place], [place] [id number] Sandy Cao, LAURY [address] [facility],[address] [address] Social History Tobacco Use Types [...] Name Priority Date/Time Associated Diagnosis Comments PAP TEST- RESULT ONLY Routine 05/23/2014 0:00 EST documented in this encounter Results * PAP TEST- RESULT ONLY (05/23/2014 0:00 EST) Pathology Report: CYTOPATHOLOGY REPORT Reports generated via electronic interface contain original data; however they are lacking the format of the original report. Caution should be taken when reading/interpreti ng unformatted reports. Name: ? REHANA FLEMING ? Accession #: ? [id number] : ? 1965 (Age: 49) ??F ?Collect Date: ? 05/23/2014 Location: ? [facility] ? Receive Date: ? 05/25/2014 Provider: ?SANDY CAO NP Copy to: ? Specimen/Source: ?Pap Test, Cervix/Endocervix, ThinPrep Imaging System with manual evaluation Last Menstrual Period: ? Hormonal/Contracep tive Status: ? Intrauterine device: Mirena ? SPECIMEN ADEQUACY ? Satisfactory for Evaluation - transformation zone component present GENERAL CATEGORIZATION ? Negative for Intraepithelial Lesion or Malignancy ? Document reviewed and electronically signed by: ? Merlyn Carbone, CT(ASCP) ? Report Date: ??05/31/2014 14:45 End of Report [facility] 05/23/2014 05/25/2014 us Sandy Cao NP PATHOLOGY ORDERABLES Final R esult [facility] [address] [place] [address] documented in this encounter Visit Diagnoses Not on filedocumented in this encounter Care Teams Watermelon Inspector Relationship Specialty Start Date End Date Unknown, Provider, PCP - General 08/08/10 documented as of this encounter
--- OUTSIDE RECORDS SUMMARY | 2024-05-06 01:04 | XMS_ITS | Encounter Summary ---
Author Organization [facility] Address [facility] [place] [address] Care Team Providers Care Spring Assembler Supervisor Name Role Phone AlonsoWillow Brissa MCKEE Primary Care Provider [phone] Reason for Visit * Reason Comments Establish Care Trochanteric bursiti s of right hip * Consultation (Routine) - Closed Specialty Diagnoses / Procedures Referred By Contac t Referred To Contact Orthopaedics Diagnoses Trochanteric bursitis of right hip Kishan Shea MD [address] [place] [address] Soham Frias MD [facility] [place] [address] Referral ID Status Reason Start Date Expiration Date V isits Requested Visits Authorized [id number] Closed Consult, Test & Treat PCP Updated and/or Approved 10/03/2022 10/03/2023 6 6 Encounter Details Date Type Department Care Team (Late st Contact Info) Description 10/16/2022 8:40 AM EDT [place] [address] Soham Frias MD [facility] ORTHOPAEDIC SURGERY [place], [place] [id number] Greater trochanteric pain syndrome of right lower extremity (Primary Dx); Chronic right hip pain Social History Tobacco Use Types Packs/Day Years [...] on file documented as of this encounter Last Filed Vital Signs Vital Sign Reading Time Taken Comments Blood Pressure - - Pulse - - Temperature - - Respiratory Rate - - Oxygen Saturation - - Inhaled Oxygen Concentration - - Weight 119.9 kg (264 lb 6.4 oz) 10/16/2022 8:36 AM EDT Height 170 cm (5' 6.93) 10/16/2022 8:36 AM EDT Body Mass Index 41.5 10/16/2022 8:36 AM EDT documented in this encounter Progress Notes * Soham Frias MD - 10/16/2022 8:40 AM EDT [facility] NEW VISIT NOTE CC: Establish Care (Trochanteric bursitis of right hip) HPI: The patient is a 57 y.o. female who presents with Establish Care (Trochanteric bursitis of right hip) Patient presents today with chronic right hip pain that began in November 2020, located laterally,without any specific inciting event. The patient states the pain rate is rated 2/10, described as sharp, that occurs at night while she is laying in bed. The pain overall comes and goes, and is worsewhen she goes from sitting to standing, walking uphill, or lying down in her right side. The pain is improved after a few steps. The patient works as a circulation newspaper, and walks, goes to the gym for exercise. The patient is tried physical therapy, along with two injections, one of which worked very well at the greater trochanteric bursa, one which did not work at all. She also had a surgery, of which she is not sure of the specific details, however sound like she had IT band lengthening, and possible gluteal tendon repair. Relevant labs- BMI Readings from Last 2 Encounters: 10/16/22 41.50 kg/m?? 04/24/20 39.16 kg/m?? No results found for: HA1C No results found for: INR, PT BP Readings from Last 3 Encounters: 04/24/20 142/81 No results found for: WBC, HGB, HCT, MCV, PLATELET No results found for: CHLPL No results found for: HDL No results found for: LDLCHOL No results found for: TRIG No results found for: CHOLHDL RADIOLOGY No new imaging. Physical Exam: Vitals: Ht 170 cm (5' 6.93) Wt 119.9 kg (264 lb 6.4 oz) BMI 41.50 kg/m?? - Gen: Alert and following commands, no acute distress - CV: pulses 2+ and equal - Skin: Intact skin, non-erythematous, no rashes or breakdown appreciated MSK At the right hip Inspection There is no gross deformity Normal muscle bulk and tone ROM Hip flexion: 120 deg ER: 50 deg IR: 30 deg Strength: (R/L) Hip flexion: (5/5) Hip adduction (5/5) Hip abduction (4/5) Internal rotation (4/5) External rotation (4/5) Palpation No TTP at the iliopsoas at the level of the hip joint No TTP at the ASIS No TTP at the AIIS TTP at the greater trochanter No TTP at the ITB No TTP at the PSIS No TTP at the piriformis Special tests Intraarticular pathology Scour of the hip: Neg Stinchfield: Neg CHRISTEN: Neg FADIR: Pain anterior, not typical pain Log roll: Neg External Snapping hip No internal or external snapping hip with dynamic ROM ITB Bria test: Neg Diagnostic Ultrasound lateral hip pre-scan reveals hypoechoic tissue around the greater trochanter, suggestive of granulation and scar tissue likely postsurgical changes. No significant bursitis noted. PROCEDURE Ultrasound guided injection. Procedure injection location: Subgluteus bakari bursa Side: Right Indication: Pain and limited function Equipment: [employer] with 4-20 MHz linear transducer, 4-12 MHz linear transducer, 8-18MHz hockey stick and 1-5 MHz curvilinear probe for adequate depth. After discussion of the risks and potential benefits of the procedure, verbal informed consent was obtained. The injection location was confirmed by a prescan of the area. Following this, the area was cleanedin the usual sterile fashion with chlorhexidine. Local anesthesia was obtained with 1% lidocaine and a superficial skin wheal using a 25g needle. Subsequently a 22g 3.5in inch needle was advanced to the target under direct ultrasound visualization using an in-plane approach. Aspiration revealed no blood. The injection was performed with solution volumes as below. Lidocaine 1% 3 ml Methylprednisolone 40 mg/ml 1 ml The needle was removed. Hemostasis was achieved with direct pressure. There were no complications and the patient tolerated the procedure well. Post procedure instructions were provided. ASSESSMENT & PLAN Impression: chronic right lateral hip pain likely due to greater trochanteric pain syndrome. At this point the patient is having significant pain with lying on her hip at night, as well as sleeping. She is not improved significantly with physical therapy, and prior surgery. Therefore will provide injection today to see if we can improve her ability to sleep. If this should work but wears off, we can considera needle fenestration to the granulation tissue to break up some of scarring. If this does not work, we can consider a intra-articular hip injection, as she had some signs of intra-articular injury, despite negative imaging for arthritis or other labral pathologies. Plan: - Rehab: PT exercises - address the biomechanical issues noted on exam today. - Medications: No changes were made today.. Counseled regarding side effects and appropriate administration of medications as applicable. - Diagnostics: none - Injections: USG right GTB injection provided today - Medical Decision Making: Discussed surgical and non-surgical options. Detailed the patient's condition, prognosis, further work-up and treatment options. Activity modification was discussed. Answered all of the patient's questions. - F/U - as needed. Consider repeat as needed Return sooner if needed, advised to call with any questions or concerns in the interim. Soham Frias MD Sports OncologistLaw Librarian of Orthopedics [facility] The note was created using dictation, please excuse any grammatical or word errors. documented in this encounter Plan of Treatment Not on file documented as of this encounter Visit Diagnoses Diagnosis Greater trochanteric pain syndrome of right lower extremity- Primary Chronic right hip pain Pain in joint, pelvic region and thigh documented in this encounter Care Teams Spring Assembler Supervisor Relationship Specialty Start Date End Date Willow Gupta APRN [address] [place] [address] PCP - General Family Medicine 10/03/22 documented as of this encounter
--- OUTSIDE RECORDS SUMMARY | 2024-05-06 01:04 | XMS_ITS | Encounter Summary ---
Author Organization [facility] Address [address] [place] [address] Care Team Providers Care Burn Nurse Name Role Phone Unavailable Primary Care Provider Unavailabl e Encounter Details Date Type Department Care Team (Late st Contact Info) Description 09/13/2004 Results Only [facility] - Maple conversion [address] [place] [address] Sandy Cao, COMMISSION SPECIALIST [address] [facility],[address] [address] Social History Tobacco Use Types [...] Priority Date/Time Associated Diagnosis Comments CYTOPATHOLOGY Routine 09/13/2004 0:00 EDT documented in this encounter Results * CYTOPATHOLOGY (09/13/2004 0:00 EDT) Pathology Report: CYTOPATHOLOGY REPORT Reports generated via electronic interface contain original data; however they are lacking the format of the original report. Caution should be taken when reading/interpreti ng unformatted reports. Name: ? REHANA FLEMING ? Accession #: ? [id number] : ? 1965 (Age: 39) ??F ?Collect Date: ? 09/13/2004 Location: ? [facility] ? Receive Date: ? 09/17/2004 Provider: ?SANDY CAO COMMISSION SPECIALIST Copy to: ? Specimen/Source: ?ThinPrep Pap Test, Cervix/Endocervix Last Menstrual Period: ? 08/22/04 Other: ? HPVA - HPV testing requested if ASC-US on the current ThinPrep Pap test. ? SPECIMEN ADEQUACY ? Satisfactory for Evaluation - transformation zone component present GENERAL CATEGORIZATION ? Negative for Intraepithelial Lesion or Malignancy INTERPRETATION ? Reactive cellular changes associated with inflammation present (includes repair). ? Document reviewed and electronically signed by: ? QUIQUE JARAMILLO MD ? Report Date: ??09/23/2004 15:13 End of Report [facility] 09/13/2004 09/17/2004 us Sandy Cao NP PATHOLOGY ORDERABLES Final R esult [facility] [address] [place] [address] documented in this encounter Visit Diagnoses Not on filedocumented in this encounter
--- OUTSIDE RECORDS SUMMARY | 2024-05-06 01:04 | XMS_ITS | Referral Summary ---
Author Organization [facility] Address [address] [place] [address] Care Team Providers Care Validation Scientist Name Role Phone Unknown, Provider MD Primary [...] Orientation Not on file Plan of Treatment Not on file Care Teams Validation Scientist Relationship Specialty Start Date End Date Unknown, Provider, PCP - General 08/08/10
--- OUTSIDE RECORDS SUMMARY | 2024-05-06 01:04 | XMS_ITS | Encounter Summary ---
[facility] Organization [facility] [place] [address] Care Team Providers Care Transportation Maintenance Specialist Name Role Phone Yolie Villegas APRN Primary Care Provider [phone] Encounter Details Date Type Department Care Team (Late st Contact Info) Description 04/24/2017 Telephone Dermatology at [address] [id number] Ami Billingsley LPN Social History Tobacco Use Types Packs/Day Years Used Date Smoking Tobacco: Never Smokeless Tobacco: Never Sex and Gender Information Value Date Recorded Sex Assigned at Not on file Gender Identity Not on file Sexual Orientation Not on file documented as of this encounter Miscellaneous Notes * Telephone Encounter - Ami Billingsley LPN - 04/27/2017 8:20 AM EST 2nd message left. * Telephone Encounter - Ami Billingsley LPN - 04/24/2017 11:00 AM EST Nurse attempted to contact patient to review biopsy results; Shave presternal chest; Benign mole seborrheic keratoses, NOT skin cancer, no further treatment necessary, return to clinic as needed. Message left. documented in this encounter Plan of Treatment Not on file documented as of this encounter Visit Diagnoses Not on filedocumented in this encounter Care Teams Transportation Maintenance Specialist Relationship Specialty Start Date End Date Yolie Villegas APRN [address] [place] [place] [address] PCP - General Family Medicine 04/21/17 10/02/22 documented as of this encounter
--- OUTSIDE RECORDS SUMMARY | 2024-05-06 01:04 | XMS_ITS | Encounter Summary ---
Author Organization [facility] Address [address] [place] [address] Care Team Providers Care Career Manager Name Role Phone Unknown, Provider Primary Care Provider Unava ilable Encounter Details Date Type Department Care Team (Late st Contact Info) Description 07/21/2017 Results Only [facility] [phone] Charlotte Villegas FNP [address] [place] [address] Social History Tobacco Use Types [...] Diagnosis Comments PAP TEST- RESULT ONLY Routine 07/21/2017 0:00 EDT documented in this encounter Results * PAP TEST- RESULT ONLY (07/21/2017 0:00 EDT) Pathology Report: CYTOPATHOLOGY REPORT Reports generated via electronic interface contain original data; however they are lacking the format of the original report. Caution should be taken when reading/interpreti ng unformatted reports. Name: ? REHANA FLEMING ? Accession #: ? [id number] ? : ? 1965 (Age: 52) ??F ?Collect Date: ? 07/21/2017 ? Location: ? [facility] ? Receive Date: ? 07/22/2017 ? Provider: CHARLOTTE VILLEGAS ROCK DUSTER Copy to: ? Final Report SPECIMEN ADEQUACY ? Satisfactory for Evaluation - transformation zone component present GENERAL CATEGORIZATION ? Negative for Intraepithelial Lesion or Malignancy ?? Specimen/Source: ??Pap Test, Cervix, ThinPrep Imaging System with manual evaluation Document reviewed and electronically signed by: ? KARY Vu(ASCP) ? Report ??Date: 07/29/2017 12:10 HPV with Pap Test ? Date Ordered: ? 07/29/2017 ? Status: ?? Signed Out ?Date Complete: ? 07/30/2017 ? By: ??System Interface ? Date Reported: ? 07/30/2017 ? Interpretation RESULT: Negative for HPV. No E6 or E7 mRNA is detected from HPV types 16,18,31,33,35, 39,45,51,52,56,58, 59,66, and 68 by jewelry coater mediated amplification. Comments Document reviewed and electronically signed by: ? System Interface ? Report date: 07/30/2017 By the signature above, the attending physician certifies that he/she has personally conducted a gross and/or microscopic examination of the described specimens and rendered or confirmed the above diagnosis. End of Report [facility] 07/21/2017 07/22/2017 us Charlotte Nelly ROCK DUSTER PATHOLOGY ORDERABLES Final Res ult [facility] [address] [place] [address] documented in this encounter Visit Diagnoses Not on filedocumented in this encounter Care Teams Career Manager Relationship Specialty Start Date End Date Unknown, Provider, PCP - General 08/08/10 documented as of this encounter
--- OUTSIDE RECORDS SUMMARY | 2024-05-06 01:04 | XMS_ITS | Encounter Summary ---
Author Organization [facility] Address [address] [place] [address] Care Team Providers Care Vpk Teacher Name Role Phone Unavailable Primary Care Provider Unavailabl e Encounter Details Date Type Department Care Team (Late st Contact Info) Description 09/17/2005 Results Only [facility] - Maple conversion [address] [place] [address] Sandy Cao, CORRECTIONAL MANAGER [address] [place] [address],[address] [phone] Social History Tobacco Use Types [...] Priority Date/Time Associated Diagnosis Comments CYTOPATHOLOGY Routine 09/17/2005 0:00 EDT documented in this encounter Results * CYTOPATHOLOGY (09/17/2005 0:00 EDT) Pathology Report: CYTOPATHOLOGY REPORT Reports generated via electronic interface contain original data; however they are lacking the format of the original report. Caution should be taken when reading/interpreti ng unformatted reports. Name: ? REHANA FLEMING ? Accession #: ? [id number] : ? 1965 (Age: 40) ??F ?Collect Date: ? 09/17/2005 Location: ? [facility] ? Receive Date: ? 09/19/2005 Provider: ?SANDY CAO CORRECTIONAL MANAGER Copy to: ? Specimen/Source: ?ThinPrep Pap Test, Cervix/Endocervix, processed on [employer] ThinPrep Imaging System, with manual evaluation Last Menstrual Period: ? 09/07/05 Previous Gynecologic Pathology: ? Yes: years ago Other: ? HPVA - HPV testing requested if ASC-US on the current ThinPrep Pap test. ? SPECIMEN ADEQUACY ? Satisfactory for Evaluation - transformation zone component present GENERAL CATEGORIZATION ? Negative for Intraepithelial Lesion or Malignancy ? Document reviewed and electronically signed by: ? KARY William(ASCP) ? Report Date: ??09/23/2005 10:46 End of Report [facility] 09/17/2005 09/19/2005 us Sandy Cao NP PATHOLOGY ORDERABLES Final R esult [facility] [address] [place] [address] documented in this encounter Visit Diagnoses Not on filedocumented in this encounter
--- OUTSIDE RECORDS SUMMARY | 2024-05-06 01:04 | XMS_ITS | Encounter Summary ---
Author Organization [facility] [place] [address] Care Team Providers Care Bending Press Operator Name Role Phone Yolie Villegas APRN Primary Care Provider [phone] Reason for Visit * Reason Comments Skin Check Encounter Details Date Type Department Care Team (Late st Contact Info) Description 06/04/2021 8:30 AM EST Office Visit Dermatology at [address] [place] [address] Ha Cardenas MD [address] [facility] [place] [address] Nevus; Rosacea Social History Tobacco Use Types Packs/Day Years Used Date Smoking Tobacco: Never Smokeless Tobacco: Never Sex and Gender Information Value Date Recorded Sex Assigned at Not on file Gender Identity Not on file Sexual Orientation Not on file documented as of this encounter Progress Notes * Ha Cardenas MD - 06/04/2021 8:30 AM EST Problem: 1. Repeat skin checkup 2. Facial rash 3. No personal history of skin cancer Teri follows up after last being seen in 2018. She is very fair skinned and still works at the [employer]. She would like a general skin check and is also mentions a rash on her face. Physical examination reveals a pleasant 56-year-old woman who has reddish-brown hair freckling and blue eyes. She has very fair skin type II Forte pigmentation. She has papular mild rosacea of the cheeks and over her nose. Fortunately she has a benign examination of the head and neck the chest the back the hands the arms of forearms the thighs and the calves. She has a scar at the up on thepresternal chest where I biopsied what turned out to be a seborrheic keratosis at the time of her last visit. Assessment plan: Benign skin examination 1. Patient reassured about her benign skin examination 2. Encouraged use of SPF 50-70 sunscreen when out of doors for any length of time 3. Return to clinic as needed Rosacea 1. Discussed diagnosis of rosacea 2. Recommend that we begin metronidazole 0.75% gel using on a twice daily basis until clear then once daily or every other day to maintain. 3. Metronidazole 0.75% gel apply twice daily to face after washing. Dispense 45 g with 5 refills. This be called into [facility] in [place]. CC: Yolie Villegas APRN documented in this encounter Plan of Treatment Not on file documented as of this encounter Visit Diagnoses Diagnosis Nevus Benign neoplasm of skin, site unspecified Rosacea documented in this encounter Care Teams Bending Press Operator Relationship Specialty Start Date End Date Yolie Villegas [place] [address] [place] [address] PCP - General Family Medicine 04/21/17 10/02/22 documented as of this encounter
--- OUTSIDE RECORDS SUMMARY | 2024-05-06 01:04 | XMS_ITS | Encounter Summary ---
Author Organization [place] [address] Care Team Providers Care Records Clerk Name Role Phone Yolie Villegas APRN Primary Care Provider [phone] Encounter Details Date Type Department Care Team (Late st Contact Info) Description 03/18/2022 Ancillary Procedure Radiology Library at [facility] [place] [address] Yolie Villegas APRN [address] [place] [address] [place] [address] Social History Tobacco Use Types [...] Associated Diagnosis Comments FILM LIBRARY STORAGE ONLY MR HIP Routine 03/18/2022 12:00 AM EST documented in this encounter Results * Film Library- Storage Only MR Hip (03/18/2022 12:00 AM EST) Narrative [facility] - 09/26/2022 9:02 AM EDT This exam is auto-finalizing. It's purpose is for storage only. Yolie Villegas APRN [employer] FILM LIBRARY ORD ERABLES [place], [place] documented in this encounter Visit Diagnoses Not on filedocumented in this encounter Care Teams Records Clerk Relationship Specialty Start Date End Date Yolie Villegas APRN [address] [place] [address] PCP - General Family Medicine 04/21/17 10/02/22 documented as of this encounter
--- OUTSIDE RECORDS SUMMARY | 2024-05-06 01:04 | XMS_ITS | Encounter Summary ---
Author Organization [facility] [place] [address] Care Team Providers Care Traveling Auditor Name Role Phone Yolie Villegas APRN Primary Care Provider [phone] Reason for Visit * Reason Comments Establish Care itchy left nipple, h x of breast ca * Consultation (Routine) - Closed Specialty Diagnoses / Procedures Referred By Contac t Referred To Contact Hematology and Oncology Diagnoses Family history of malignant neoplasm of breast FAMILY HX BREAST CA, ITCHY NIPPLE Yolie Villegas APRN [address] [place] [address] [facility] [address] [place] [address] Referral ID Status Reason Start Date Expiration Date V isits Requested Visits Authorized [id number] Closed Consult, Test & Treat Connection Center PCP Updated and/or Approved 04/09/2020 04/09/2021 6 6 Encounter Details Date Type Department Care Team (Late st Contact Info) Description 04/24/2020 8:00 AM EST Office [place] [address] Joyce Gibbs APRN [facility] [place] [address] Nipple dermatitis Social History Tobacco Use Types Packs/Day Years [...] EST Inhaled Oxygen Concentration - - Weight 113.4 kg (250 lb) 04/24/2020 7:49 AM EST Height 170.2 cm (5' 7) 04/24/2020 7:49 AM EST Body Mass Index 39.16 04/24/2020 7:49 AM EST documented in this encounter Progress Notes * Joyce Gibbs APRN - 04/24/2020 8:00 AM EST Images from the original note were not included. Patient ID: Margie Fleming is a 55 y.o. female who is seen at the request of Yolie Villegas APRN for evaluation of a left itchy nipple. HPI: Flaquita has a family history of breast cancer in several maternal cousins, but no first degree relatives. She reports she had itching of the left nipple about a year ago, but by the time she got in for an exam and imaging, it had resolved. The current episode began about 3-4 weeks ago. She denies any rash on the nipple, scaling, discharge, or other nipple changes. She uses her body brush to scratch it in the shower, but has not tried any treatment. At today's visit, Flaquita denies any skin changes, new breast masses, breast trauma, or prior breastsurgery. No nipple discharge or pain in either breast. She denies any headaches or significant weight changes. No new chest pain or difficulty breathing. No new bony pain or tenderness. She has no new or concerning complaints of fatigue, cardiovascular, or respiratory symptoms. All other ROS are negative. Imaging performed: bilateral diagnostic mammogram at [facility] on 08/30/2019 was interpreted as BI-RADS Category 1 with scattered areas of fibroglandular density. She does not have a history of cystic breast tissue and has not had cysts aspirated or breast biopsies in the past. She does not typically perform self-breast exams. Breast Cancer Risk Factors: History Age at delivery of first child 35 yo Breast fed No Oral contraceptive use Yes Menarche Age 15 yo LMP 42 yo Hormone replacement therapy No Family history of breast cancer 4 maternal cousins Family history of ovarian cancer No Known genetic mutation Not tested Previous breast biopsy No Previous radiation to chest No Family History Problem (# of Occurrences) Relation (Name,Age of Onset) Breast Cancer (4) Maternal Cousin, Maternal Cousin, Maternal Cousin, Maternal Cousin Cancer (1) Father: Unknown type Negative family history of: Ovarian Cancer Social Hx: She works for the [employer]. She gets regular exercise with boot camp classes twice a week and going to the gym for cardio on other days. She has never smoked; ETOH - none Past Medical Hx: Seborrheic keratosis, HTN, depression, obesity Past Surgical Hx: Noncontributory Physical Exam: General appearance: Alert, well-developed, well-nourished female in no acute distress. Skin: Warm and dry. Head: Normocephalic, atraumatic Neck: Soft and supple without masses or adenopathy. Cardiovascular: Normal rate, regular rhythm and normal heart sounds. No murmur heard. Pulmonary: Effort normal and breath sounds normal. No respiratory distress, cough, or wheezing. Breasts: Both breasts appear normal. There are several small isolated patches of salmon-colored scale on her chest and right breast. No suspicious masses, tenderness, dimpling, erythema, or other skin changes in either breast. No nipple discharge or other nipple changes. No palpable axillary lymph nodes bilaterally. The patient's breasts are large and generally symmetric. The nipples are everted.I feel no obvious discrete or dominant masses in either breast. Musculoskeletal: Full ROM in upper extremities without lymphedema. Neurological: Alert and oriented x 4. Mood is euthymic and appropriate to the situation. COLLEEN Risk: Breast Cancer Risk (COLLEEN) Scores 04/24/2020 Lifetime Risk of Patient 11.6% Average Lifetime Risk 10/6% 5-Year Risk of Patient 1.5% Average 5-Year Risk 1.4% Recommend Genetic Risk Assessment w/B-RST 2% (if FHx + for breast cancer <50, or ovarian cancer Assessment: Clinical breast exam with faint patches of salmon-colored scales scattered over her chest and lateral right breast. No rash or other skin changes noted over the left areola. No notable masses, dimpling, or nipple discharge. 5 Year COLLEEN Risk insufficiently high to warrant consideration for chemoprevention (< 1.7%). Lifetime COLLEEN Risk insufficently high to warrant adjunctive MRI at this time (<20%). Plan: 1. Nipple dermatitis - triamcinolone (KENALOG) 0.1 % Cream; Apply topically 2 times daily. Dispense: 45 g; Refill: 1 I feel that her symptoms are most likely related to psoriasis and recommended a trial of triamcinolone for up to 2 weeks. At that point, if her symptoms have not improved, or sooner if they have worsened, I will have her return for diagnostic imaging. At this time however, I am reassured that her breast exam is normal . I then discussed nonpharmacologic measures that she can take to decrease her risk of developing breast cancer, to include the following: ?? Get at least 30 minutes of moderate intensity physical activity above normal activity on most days of the week to reduce the risk of chronic disease in adulthood. Walking is a good choice. You also may want to do other activities, such as running, swimming, cycling, or playing tennis or team sports. ?? Do strength training exercises at least twice a week to maintain muscle and bone health. ?? Drink alcohol in moderation, if at all. That means no more than 1 drink a day for women or 2 perday for men. ?? Make healthy eating choices: fruits and vegetables, lean protein, and healthy fats. Minimize simple carbohydrates, sugars, and processed foods. ?? Normal BMI < 25 for individuals under 65 years old; 22-30 for > 65 years old. ?? Be cautious about exposure risk, both what you put in and on your body (ie: artificial fragrances, artificial dyes, as well as certain ingredients in makeup, hair and body care, antiperspirant, laundry detergent, fabric softener, dryer sheets, etc.). The nations ban over 1,300 ingredients from personal care products. Unfortunately, the [place] only bans 30 products. An kalia to help make healthier choices for personal care products is available at [employer] Based on her risk status, her next bilateral screening mammogram is due August 2020 or sooner if indicated. Ms. Fleming agrees to this plan. All questions were answered to the patient's satisfaction and they state understanding and agreement with today's treatment plan. They are encouraged to follow up sooner if symptoms worsen or fail toimprove as expected, or if they develop other concerning symptoms. Joyce Gibbs APRN Surgical Oncology P [phone] F [phone] [facility] documented in this encounter Plan of Treatment Not on file documented as of this encounter Visit Diagnoses Diagnosis Nipple dermatitis Contact dermatitis and other eczema, due to unspecified cause documented in this encounter Care Teams Traveling Auditor Relationship Specialty Start Date End Date Yolie Villegas APRN [facility] [place] [address] PCP - General Family Medicine 04/21/17 10/02/22 documented as of this encounter
--- OUTSIDE RECORDS SUMMARY | 2024-05-06 01:05 | XMS_ITS | Encounter Summary ---
Author Organization [facility] [place] [address] Care Team Providers Care Manager French Name Role Phone Juan Manuel Leach MD Primary Care Provider Addison castañeda Encounter Details Date Type Department Care Team (Late st Contact Info) Description 05/24/2014 Ancillary Procedure Radiology Library at [facility] [place] [address] Yolie Villegas APRN [address] [place] [address] [place] [address] Social History Tobacco Use Types Packs/Day Years Used Date Smoking Tobacco: Never Assessed Sex and Gender Information Value Date Recorded Sex Assigned at Not on file Gender Identity Not on file Sexual Orientation Not on file documented as of this encounter Plan of Treatment Not on file documented as of this encounter Procedures Procedure Name Priority Date/Time Associated Diagnosis Comments FILM LIBRARY STORAGE ONLY DX HIP Routine 05/24/2014 12:00 AM EST documented in this encounter Results * Film Library- Storage Only DX Hip (05/24/2014 12:00 AM EST) Narrative RAD - 09/26/2022 9:02 AM EDT This exam is auto-finalizing. It's purpose is for storage only. Yolie Villegas APRN IMG FILM LIBRARY ORD ERABLES [place], [place] documented in this encounter Visit Diagnoses Not on filedocumented in this encounter Care Teams Manager French Relationship Specialty Start Date End Date Juan Manuel Leach MD PCP - General 02/19/10 04/20/17 documented as of this encounter
--- OUTSIDE RECORDS SUMMARY | 2024-05-06 01:05 | XMS_ITS | Encounter Summary ---
Author Organization [facility] [place] [address] Care Team Providers Care Chairman Emeritus Name Role Phone Juan Manuel Leach MD Primary Care Provider Addison castañeda Encounter Details Date Type Department Care Team (Late st Contact Info) Description 07/31/2010 Ancillary Procedure Radiology Library at [facility] [place] [address] Yolie Villegas APRN [address] [place] [address] [place] [address] Social History Tobacco Use Types [...] Comments FILM LIBRARY STORAGE ONLY MAMMO Routine 07/31/2010 12:00 AM EDT documented in this encounter Results * Film Library- Storage Only Mammo (07/31/2010 12:00 AM EDT) Narrative RAD - 09/05/2019 11:48 AM EDT This exam is auto-finalizing. It's purpose is for storage only. Yolie Villegas APRN IMG FILM LIBRARY ORD ERABLES [facility] [place], [place] documented in this encounter Visit Diagnoses Not on filedocumented in this encounter Care Teams Chairman Emeritus Relationship Specialty Start Date End Date Juan Manuel Leach MD PCP - General 02/19/10 04/20/17 documented as of this encounter
--- OUTSIDE RECORDS SUMMARY | 2024-05-06 01:05 | XMS_ITS | Encounter Summary ---
Author Organization [facility] [place] [address] Care Team Providers Care Machine Hoop Maker Name Role Phone Juan Manuel Leach MD Primary Care Provider Addison castañeda Encounter Details Date Type Department Care Team (Late st Contact Info) Description 01/22/2017 Ancillary Procedure Radiology Library at [facility] [place] [address] Yolie Villegas APRN [address] [place] [address] [place] [address] Social History Tobacco Use Types [...] Comments FILM LIBRARY STORAGE ONLY MAMMO Routine 01/22/2017 12:00 AM EDT documented in this encounter Results * Film Library- Storage Only Mammo (01/22/2017 12:00 AM EDT) Narrative RAD - 09/05/2019 11:51 AM EDT This exam is auto-finalizing. It's purpose is for storage only. Yolie Villegas APRN IMG FILM LIBRARY ORD ERABLES [facility] [place], [place] documented in this encounter Visit Diagnoses Not on filedocumented in this encounter Care Teams Machine Hoop Maker Relationship Specialty Start Date End Date Juan Manuel Leach MD PCP - General 02/19/10 04/20/17 documented as of this encounter
--- OUTSIDE RECORDS SUMMARY | 2024-05-06 01:05 | XMS_ITS | Encounter Summary ---
Author Organization [facility] [place] [address] Care Team Providers Care Wall To Wall Carpet Installer Name Role Phone Juan Manuel Leach MD Primary Care Provider Addison castañeda Encounter Details Date Type Department Care Team (Late st Contact Info) Description 01/29/2012 Ancillary Procedure Radiology Library at [facility] [place] [address] Yolie Villegas APRN [address] [place] [address] [place] [address] Social History Tobacco Use Types [...] Comments FILM LIBRARY STORAGE ONLY MAMMO Routine 01/29/2012 12:00 AM EDT documented in this encounter Results * Film Library- Storage Only Mammo (01/29/2012 12:00 AM EDT) Narrative RAD - 09/05/2019 11:50 AM EDT This exam is auto-finalizing. It's purpose is for storage only. Yolie Villegas APRN IMG FILM LIBRARY ORD ERABLES [facility] [place] documented in this encounter Visit Diagnoses Not on filedocumented in this encounter Care Teams Wall To Wall Carpet Installer Relationship Specialty Start Date End Date Juan Manuel Leach MD PCP - General 02/19/10 04/20/17 documented as of this encounter
--- OUTSIDE RECORDS SUMMARY | 2024-05-06 01:05 | XMS_ITS | Encounter Summary ---
Author [facility] [place] [address] Care Team Providers Care Program Management Professional Name Role Phone Yolie Villegas APRN Primary Care Provider [phone] Reason for Visit * Reason Comments Follow-up Skin Check * Consultation (Routine) - Specialty Diagnoses / Procedures Referred By Nadine goodson Referred To Contact Dermatology Diagnoses Disorder of the skin and subcutaneous tissue, unspecified Procedures Skin Lesion Yolie Villegas APRN [address] [place] [address] Ha Cardenas MD [address] [place] [address], [facility] [place] [place] [address] Referral ID Status Reason Start Date Expiration Date V isits Requested Visits Authorized [id number] Consult, Test & Treat PCP Updated and/or Approved 02/17/2017 02/17/2018 6 6 Encounter Details Date Type Department Care Team (Late st Contact Info) Description 04/21/2017 9:00 AM EST Office Visit Dermatology at [address] [address] Ha Cardenas MD [address] [place] [address], [facility] [place], [place] [id number] Basal cell carcinoma of skin of other part of trunk Social History Tobacco Use Types Packs/Day Years Used Date Smoking Tobacco: Never Smokeless Tobacco: Never Sex and Gender Information Value Date Recorded Sex Assigned at Not on file Gender Identity Not on file Sexual Orientation Not on file documented as of this encounter Progress Notes * Ha Cardenas MD - 04/21/2017 9:00 AM EST PROBLEM: Skin checkup. Margie is a 52-year-old woman who works at the [employer]. She states that she has had problems with a rash. She would like to have a general skin check because she is very fair-skinned. I last saw her in 2006 for skin tag removal. She also notes that she has an intermittent rash around her neck and under the breasts. She was given Lotrisone cream by Yolie Villegas, and she uses this intermittently for 1 or 2 applications if she has submammary intertrigo, with almost immediate benefit and relief of symptoms. The patient is seen in consultation today for Yolie Villegas. Physical examination reveals a pleasant 52-year-old woman who is fair-skinned, freckled, with blue eyes and brown hair. She has a benign examination of the face, with some mild rosacea that is not bothersome to her currently, some small papule/pustules on the medial cheeks and nasal bridge. She has a pearly papule on the presternal chest concerning for BCCA. She has several early skin tags present on the anterior base of her neck. She does have some active submammary intertrigo today under both breasts. Examination of the head and the neck, the chest, the back, hands and forearms, thighs and the calves is benign. A/P: 1. R/o BCCA presternal chest. a. After obtaining informed consent, the site was anesthetized and removed with a shave biopsy. . b. We will notify patient of biopsy results in 1 week. c. Wound care instructions and supplies given. 2. Tags base of neck. a. Could consider LN2 therapy for these. 3. Benign skin examination. The patient reassured about benign skin examination. Recommend return to clinic every 3-5 years for a repeat check. 4. Intertrigo. a. Recommend conservative measures for preventing intertrigo; Gold Rayo or baby powder, wearing a cotton handkerchief underneath her bra to absorb and redirect moisture. b. Warned against overuse of Lotrisone cream given its steroidal atrophy side effect in intertriginous areas. Return to clinic here in 3-5 years. Cc: Yolie Villegas APRN documented in this encounter Plan of Treatment Not on file documented as of this encounter Visit Diagnoses Diagnosis Basal cell carcinoma of skin of other part of trunk documented in this encounter Care Teams Program Management Professional Relationship Specialty Start Date End Date Yolie Villegas APRN [facility] [address] [place] [address] PCP - General Family Medicine 04/21/17 10/02/22 documented as of this encounter
--- NOTE | 2024-05-06 08:01 | DI.MAMMO_ITS ---
Exam(s) MAMMO SCREENING EXAM: MAMMO SCREENING CLINICAL HISTORY: Screening, Z12.31 TECHNIQUE: Mammograms were interpreted according to the usual protocol including computer analysis w [employer] CAD system, tomosynthesis and C-view imaging. COMPARISON: 2016 through 2022 FINDINGS: The breasts are composed of scattered fibroglandular densities, Breast Density category B. No suspicious masses or suspicious microcalcifications are seen. No skin thickening or abnormal axillary lymph nodes are seen. There has been no significant change from prior exams. IMPRESSION: BI-RADS Category 1, Negative mammogram Yearly screening mammography is recommended. Breast Density - Category B, scattered fibroglandular densities. A negative radiographic report should not delay biopsy if a dominant or clinically suspicious mass is present. Up to ten percent of cancers are not identified on mammography. A negative report may reinforce clinical impression. Adenosis and dense breasts may obscure an underlying neoplasm. False positive reports average 6 to 10%. Patient will receive a letter notifying them of these results.
== END 2024-05-06 01:14 ==
PROVIDERS: PCP Nurse Practitioner Family; Visit Provider Nurse Practitioner Family
DX: Z12.31 Encounter for screening mammogram for malignant neoplasm of breast (principal); R92.323 Mammographic fibroglandular density, bilateral breasts
CPT/HCPCS: 77063; 77067

== ENCOUNTER 2024-08-02 12:54 | Outpatient (REF) | payer OTHER, SELFPAY ==
[2024-08-02 18:49] LABS: COMMENT (LAB VIEW ONLY) 225.85 mg/dL; Microalb ug/mg Crea 7.4 ug/mg Cr
== END 2024-08-02 12:55 | disposition home or self-care (01) ==
LOC: NCHCN 12:54
PROVIDERS: PCP Nurse Practitioner Family; Visit Provider Family Medicine
DX: I10 Essential (primary) hypertension (principal)
CPT/HCPCS: 82043; 82570

== ENCOUNTER 2024-09-23 00:45 | Outpatient (CLI) | payer OTHER, SELFPAY ==
[2024-09-23 08:00] LABS: Abs Immature Grans 0.03 10^3/uL (0.0-0.06); Absolute Basophil Count 0.03 10^3/uL (0.0-0.2); Absolute Eosinophil Count 0.19 10^3/uL (0.0-0.7); Absolute Lymphocyte Count 2.04 10^3/uL (1.2-3.4); Absolute Monocyte Count 0.42 10^3/uL (0.1-0.8); Absolute Neutrophil Count 3.47 10^3/uL (1.2-6.7); Basophils % 0.5 %; Eosinophils % 3.1 %; HCT 42.2 % (36.0-46.0); HGB 13.7 g/dL (11.2-15.7); Immature Grans % 0.5 %; MCH 29.5 pg (27.0-33.0); MCHC 32.5 % (32.0-36.0); MCV 91 fL (80-95); MPV 11.5 fL (8.0-11.0); Monocytes % 6.8 %; Neutrophils % 56.1 %; Platelet Count 208 10^3/uL (130-400); RBC 4.65 10^6/uL (3.93-5.22); RDW 14.3 % (11.7-14.6); RDW-SD 47.1 fL; WBC 6.18 10^3/uL (4.4-10.8)
[2024-09-23 08:13] LABS: Hemoglobin A1C 5.7 % (<5.7)
[2024-09-23 09:52] LABS: ALT 29 U/L (14-59); AST 17 U/L (15-37); Albumin 3.9 g/dL (3.4-5.0); Alkaline Phosphatase 106 U/L (46-116); Anion Gap 8.4 mmol/L (3-11); BUN 20 mg/dL (7-18); Bilirubin, Total 0.4 mg/dL (0.2-1.0); CO2 26.6 mmol/L (21.0-32.0); CREATININE 0.8 mg/dL (0.55-1.02); Calculated LDL 141 mg/dL (<100); Chloride 106 mmol/L (98-107); Cholesterol 204 mg/dL (<200); Estimated GFR 85.89 (mL/min/1.73m2); Glucose 82 mg/dL (74-106); HDL Cholesterol 53 mg/dL (>or=50); Sodium 141 mmol/L (136-145); TSH (W/Ref FT4) 2.86 uIU/mL (0.36-3.74); Total Protein 6.9 g/dL (6.4-8.2); Triglyceride 50 mg/dL (<150)
[2024-09-26 11:29] LABS: Lyme Ab w Rflx to Lyme Confirm Negative (Negative)
== END 2024-09-23 00:46 | disposition home or self-care (01) ==
PROVIDERS: PCP Nurse Practitioner Family; Visit Provider Family Medicine
DX: Z68.41 Body mass index [BMI] 40.0-44.9, adult (principal); I10 Essential (primary) hypertension; M79.18 Myalgia, other site
CPT/HCPCS: 36415; 80053; 80061; 83036; 84443; 85025; 86618